=== PATIENT | male | born 1945 | race Caucasian/White ===

== ENCOUNTER 2016-05-28 19:25 | Inpatient (IN) | payer MEDICARE ==
[~2016-05-28] VITALS: Ht 180.3 cm; Wt 98.8 kg
[~2016-05-28 19:25] MED LIST: CARB25TA4 PO; DIOV160T60 PO; DOXY100T PO; ERYT.5%O LEFT EYE; GABA100C4 PO
[2016-05-28] MEDS ORDERED: SODIUM CHLOR 0.9% 1000 ML INJ 1,000 ML IV SCH (19:32)
[2016-05-28 19:33] VITALS: BP 136/77; PULSE 95; RESP 20; RESP 38; O2SAT 94
[2016-05-28] MEDS ORDERED: SODIUM CHLORIDE 0.9% FLUSH 5 ML FLUSH IVF PRN (19:45)
[2016-05-28] MEDS ORDERED: GABA100C4 PO (19:51)
[2016-05-28] MEDS ORDERED: SINE25TA PO (19:51)
[2016-05-28] MEDS ORDERED: LEXA5TAB PO (19:52)
[2016-05-28] MEDS ORDERED: TAMS5CAP PO (19:52)
[2016-05-28] MEDS ORDERED: SIMV20TA PO (19:52)
--- NOTE | 2016-05-28 19:57 | PD ---
HPI Chief Complaint: Altered Mental Status Time Seen by Provider: 19:32 Travel History International Travel<30 days: No Contact w/Intl Traveler<30days: No Traveled to known affect area: No History of Present Illness HPI 70-year-old male presents to the ER brought in by EMS apparently has been down for 4-5 days according to EMS, PD had done a wellness check on him several days ago, but did not go in, and patient is fairly disoriented, does not know what happened, and has apparently been laying on the floor for days. He has ecchymosis notable on the left chest wall and sacral decubitus. He is not able to give me much further history. Modifying Factors: None Associated Signs & Symptoms: Fall, laying on the floor for days, altered mental status Risk Factors: None PFSH Past Medical History Arthritis: Yes Asthma: No Autoimmune Disease: No Blood Disorders: No Anxiety: Yes Depression: No Heart Rhythm Problems: No Cancer: No Cardiovascular Problems: No High Cholesterol: Yes Chemotherapy: No Chest Pain: No Congestive Heart Failure: No COPD: No Cerebrovascular Accident: No Diabetes: No Diminished Hearing: No Endocrine: No Gastrointestinal Disorders: Yes GERD: Yes Glaucoma: No Genitourinary: No Headaches: Yes Hepatitis: No Hiatal Hernia: No Hypertension: Yes Immune Disorder: No Musculoskeletal: Yes Parkinson's Disease: Yes Psychiatric: Yes Reproductive: No Respiratory: Yes (globis disorder) Myocardial Infarction: No Radiation Therapy: No Sleep Apnea: No Thyroid Disease: No Past Surgical History Abdominal Surgery: No AICD: No Appendectomy: Yes Arteriovenous Shunt: No Cardiac Surgery: No Cholecystectomy: No Ear Surgery: No Endocrine Surgery: No Eye Surgery: Yes (LASIK) Genitourinary Surgery: No Gynecologic Surgery: No Insulin Pump: No Joint Replacement: No Oral Surgery: No Pacemaker: No Thoracic Surgery: No Other Surgery: Yes Social History Alcohol Use: Yes (EVERY TWO WEEKS) Tobacco Use: No Substance Use: No Allergies-Medications (Allergen,Severity, Reaction): Coded Allergies: Penicillin (Verified Allergy, Severe, Hives, 05/28/16) Reported Meds & Prescriptions Reported Meds & Active Scripts Active Reported Lexapro (Escitalopram Oxalate) 5 Mg Tab 5 Mg PO DAILY Simvastatin 20 Mg Tab 20 Mg PO HS Flomax (Tamsulosin HCl) 0.4 Mg Cap 0.4 Mg PO DAILY Gabapentin 100 Mg Cap 200 Mg PO TID Sinemet (Carbidopa-Levodopa) 25-100 Mg Tab 1.5 Tab PO QID Review of Systems ROS Limitations: Altered Mental Status Physical Exam Narrative GENERAL: Well-nourished, well-developed elderly white male patient who is lethargic, disoriented but awake able to follow some commands. SKIN: Warm and dry. Notable ecchymosis to the left chest wall, 1 cm area of ulceration to the sacrum and surrounding ecchymosis. HEAD: Normocephalic. EYES: No scleral icterus. No injection or drainage. Pupils are equal, round, small, equal, poorly reactive to light bilaterally. NECK: Supple, trachea midline. CARDIOVASCULAR: Regular rate and rhythm without murmurs, gallops, or rubs. RESPIRATORY: Breath sounds equal bilaterally. No accessory muscle use. GASTROINTESTINAL: Abdomen soft, non-tender, nondistended. Pelvis: Stable, nontender to palpation. MUSCULOSKELETAL: No cyanosis, or edema. BACK: Nontender without obvious deformity. No CVA tenderness. EXTREMITIES: No clubbing, cyanosis, or edema. No joint tenderness, effusion, or edema noted. Data Data Last Documented VS Vital Signs Date Time Temp Pulse Resp B/P Pulse Ox O2 Delivery O2 Flow Rate FiO2 05/28/16 20:16 97.2 05/28/16 19:33 100 05/28/16 19:33 95 20 136/77 Room Air Orders Electrocardiogram (05/28/16 19:32) Ammonia (05/28/16 19:32) Complete Blood Count With Diff (05/28/16 19:32) Comprehensive Metabolic Panel (05/28/16 19:32) Creatine Kinase (Cpk) (05/28/16 19:32) Prothrombin Time / Inr (Pt) (05/28/16 19:32) Act Partial Throm Time (Ptt) (05/28/16 19:32) Troponin I (05/28/16 19:32) Thyroid Stimulating Hormone (05/28/16 19:32) Lactic Acid Sepsis Protocol (05/28/16 19:32) Urinalysis - C+S If Indicated (05/28/16 19:32) Blood Culture (05/28/16 19:32) Chest, Single Ap (05/28/16 19:32) Ct Brain W/O Iv Contrast(Rout) (05/28/16 19:32) Blood Glucose (3/6/17 19:32) Ecg Monitoring (05/28/16 19:32) Iv Access Insert/Monitor (05/28/16 19:32) Oximetry (05/28/16 19:32) Urinary Catheter Insert/Apply (05/28/16 19:32) Sodium Chloride 0.9% Flush (Ns Flush) (05/28/16 19:45) Sodium Chlor 0.9% 1000 Ml Inj (Ns 1000 M (05/28/16 19:32) Ct Abd/Pel W/O Iv Contrast (05/28/16 19:57) Ct Thorax/ Chest Wo Iv Contras (05/28/16 20:06) Urine Culture (05/28/16 20:04) CKMB (05/28/16 19:41) CKMB% (05/28/16 19:41) Admit Order (Ed Use Only) (05/28/16 21:31) Labs Laboratory Tests Test 05/28/16 05/28/16 19:41 20:04 White Blood Count 15.4 TH/MM3 Red Blood Count 4.63 MIL/MM3 Hemoglobin 16.1 GM/DL Hematocrit 48.5 % Mean Corpuscular Volume 104.8 FL Mean Corpuscular Hemoglobin 34.8 PG Mean Corpuscular Hemoglobin 33.2 % Concent Red Cell Distribution Width 14.2 % Platelet Count 214 TH/MM3 Mean Platelet Volume 10.6 FL Neutrophils (%) (Auto) 78.7 % Lymphocytes (%) (Auto) 10.6 % Monocytes (%) (Auto) 10.4 % Eosinophils (%) (Auto) 0.1 % Basophils (%) (Auto) 0.2 % Neutrophils # (Auto) 12.1 TH/MM3 Lymphocytes # (Auto) 1.6 TH/MM3 Monocytes # (Auto) 1.6 TH/MM3 Eosinophils # (Auto) 0.0 TH/MM3 Basophils # (Auto) 0.0 TH/MM3 CBC Comment DIFF FINAL Differential Comment Prothrombin Time 12.3 SEC Prothromb Time International 1.1 RATIO Ratio Activated Partial 21.8 SEC Thromboplast Time Sodium Level 153 MEQ/L Potassium Level 5.2 MEQ/L Chloride Level 114 MEQ/L Carbon Dioxide Level 25.7 MEQ/L Anion Gap 13 MEQ/L Blood Urea Nitrogen 83 MG/DL Creatinine 2.02 MG/DL Estimat Glomerular Filtration 33 ML/MIN Rate Random Glucose 137 MG/DL Lactic Acid Level 3.9 mmol/L Calcium Level 9.8 MG/DL Total Bilirubin 1.3 MG/DL Aspartate Amino Transf 171 U/L (AST/SGOT) Alanine Aminotransferase 87 U/L (ALT/SGPT) Alkaline Phosphatase 95 U/L Ammonia 18 MCMOL/L Total Creatine Kinase 2289 U/L Creatine Kinase MB 15.7 NG/ML Creatine Kinase MB % 0.7 % Troponin I 0.03 NG/ML Total Protein 8.1 GM/DL Albumin 3.7 GM/DL Thyroid Stimulating Hormone 3.140 uIU/ML 3rd Gen Urine Color YELLOW Urine Turbidity HAZY Urine pH 5.5 Urine Specific [place] 1.026 Urine Protein TRACE mg/dL Urine Glucose (UA) NEG mg/dL Urine Ketones 10 mg/dL Urine Occult Blood SMALL Urine Nitrite NEG Urine Bilirubin NEG Urine Urobilinogen 2.0 MG/DL Urine Leukocyte Esterase NEG Urine RBC 5 /hpf Urine WBC 6 /hpf Urine Bacteria RARE /hpf Urine Hyaline Casts 13 /lpf Microscopic Urinalysis Comment CATH-CULTURE IND MDM Medical Decision Making Medical Screen Exam Complete: Yes Emergency Medical Condition: Yes Medical Record Reviewed: Yes Interpretation(s) EKG shows sinus rhythm at a rate of 98 bpm with no signs of acute ST-T changes. Laboratory Tests Test 05/28/16 05/28/16 19:41 20:04 White Blood Count 15.4 TH/MM3 (4.0-11.0) Mean Corpuscular Volume 104.8 FL (80.0-100.0) Mean Corpuscular Hemoglobin 34.8 PG (27.0-34.0) Neutrophils (%) (Auto) 78.7 % (16.0-70.0) Monocytes (%) (Auto) 10.4 % (0.0-8.0) Neutrophils # (Auto) 12.1 TH/MM3 (1.8-7.7) Monocytes # (Auto) 1.6 TH/MM3 (0-0.9) Prothrombin Time 12.3 SEC (9.8-11.6) Activated Partial 21.8 SEC Thromboplast Time (24.3-30.1) Sodium Level 153 MEQ/L (136-145) Potassium Level 5.2 MEQ/L (3.5-5.1) Chloride Level 114 MEQ/L (98-107) Blood Urea Nitrogen 83 MG/DL (7-18) Creatinine 2.02 MG/DL (0.60-1.30) Estimat Glomerular Filtration 33 ML/MIN (>89) Rate Random Glucose 137 MG/DL (74-106) Lactic Acid Level 3.9 mmol/L (0.4-2.0) Total Bilirubin 1.3 MG/DL (0.2-1.0) Aspartate Amino Transf 171 U/L (15-37) (AST/SGOT) Alanine Aminotransferase 87 U/L (12-78) (ALT/SGPT) Total Creatine Kinase 2289 U/L (39-308) Creatine Kinase MB 15.7 NG/ML (0.5-3.6) Urine Turbidity HAZY (CLEAR) Urine Ketones 10 mg/dL (NEG) Urine Occult Blood SMALL (NEG) Urine RBC 5 /hpf (0-3) Urine WBC 6 /hpf (0-5) Urine Bacteria RARE /hpf (NONE) Last [address] 05/28/162005 Signed Impressions: Service Date/Time: Saturday, May 28, 2016 20:36 - CONCLUSION: Trace bibasilar atelectasis and a tiny pleural effusion on the right. Coronary artery calcification. Earle Diane MD Abdomen/Pelvis CT 05/28/161956 Signed Impressions: Service Date/Time: Saturday, May 28, 2016 20:34 - CONCLUSION: No acute process demonstrated. Sludge or small stones possible in the gallbladder. No inflammatory changes or evidence of obstruction. Earle Diane MD Head CT 05/28/161931 Signed Impressions: Service Date/Time: Saturday, May 28, 2016 20:32 - CONCLUSION: No acute intracranial abnormality demonstrated. Earle Diane MD Chest X-Ray 05/28/[id number] Signed Impressions: Service Date/Time: Saturday, May 28, 2016 19:45 - CONCLUSION: Prominent mediastinum but most likely related to technique. Standard upright 2 view chest x-ray recommended when clinically feasible. Otherwise within normal limits. Earle Diane MD Differential Diagnosis Fall, altered mental statussevere dehydration versus the left leg abnormalities versus acute intracranial injuries versus sepsis Narrative Course X-rays and CAT scans did not show any signs of acute injuries. His lab work shows that he is severely dehydrated and he has rhabdomyolysis. IV fluid boluses were given in the ER. Vital signs are stable in the ER. Case was discussed with supervisor customer services Dr. Sherman for admission for further treatment. Aggregate critical care time was 30 minutes. Time to perform other separately billable procedures was not included in the critical care time. My time did not include minutes spent treating any other patients simultaneously or on activities that did not directly contribute to the patient's treatment. The services I provided to this patient were to treat and/or prevent clinically significant deterioration that could result in: Worsening renal failure, electrolyte abnormalities, cardiopulmonary arrest, I provided critical care services requiring my management, as noted below: Chart data review, documentation time, medication orders and management, vital sign assessments/reviewing monitor data, ordering and reviewing lab tests, ordering and interpreting/reviewing x-rays and diagnostic studies, care of the patient and discussion of the patient with the admitting physicians. Diagnosis Primary Impression: Dehydration, severe Additional Impressions: Metabolic encephalopathy Rhabdomyolysis Admitting Information Admitting Physician Requests: Admit Trish Christine MD May 28, 2016 19:57
--- NOTE | 2016-05-28 19:59 | RADRPT ---
EXAM DATE/TIME: 05/28/2016 19:45 [facility] COMPARISON: CHEST PA & LAT, December 13, 2011, 11:12. INDICATIONS : Syncopal episode. MEDICAL HISTORY : Hypertension. Hypercholesterolemia. Parkinson Disease. SURGICAL HISTORY : Appendectomy. ENCOUNTER: Initial ACUITY: 1 day PAIN SCORE: Non-responsive. LOCATION: Bilateral chest FINDINGS: Study was obtained portably with the patient supine. Mediastinum is widened, likely related to techni que. No evidence of cardiomegaly. The lungs are clear. No pleural effusion or perceptible pneumothora x. CONCLUSION: Prominent mediastinum but most likely related to technique. Standard upright 2 view chest x-ray recom mended when clinically feasible. Otherwise within normal limits. Earle Dinae MD on May 28, 2016 at 19:57 Board Certified Radiologist. This report was verified electronically.
[2016-05-28 20:01] LABS: AUTOMATED NEUTROPHIL # 12.1 TH/MM3 (1.8-7.7); BASOPHIL % 0.2 % (0.0-2.0); EOSINOPHIL % 0.1 % (0.0-4.0); HEMATOCRIT 48.5 % (39.0-51.0); HEMO FLAGS DIFF FINAL; LYMPH % 10.6 % (9.0-44.0); LYMPHOCYTE # 1.6 TH/MM3 (1.0-4.8); MEAN CELL VOLUME 104.8 FL (80.0-100.0); MEAN CORPUSCULAR HEMOGLOBIN 34.8 PG (27.0-34.0); MEAN CORPUSCULAR HGB CONC 33.2 % (32.0-36.0); MONO % 10.4 % (0.0-8.0); NEUT % 78.7 % (16.0-70.0); PLATELET COUNT 214 TH/MM3 (150-450); RED BLOOD COUNT 4.63 MIL/MM3 (4.50-5.90); RED CELL DISTRIBUTION WIDTH 14.2 % (11.6-17.2); WHITE BLOOD COUNT 15.4 TH/MM3 (4.0-11.0)
[2016-05-28 20:11] LABS: APTT (PATIENT) 21.8 SEC (24.3-30.1); INTERNATIONAL NORMALIZED RATIO 1.1 RATIO; PROTHROMBIN TIME - PATIENT 12.3 SEC (9.8-11.6)
[2016-05-28 20:16] VITALS: TEMP 97.2
[2016-05-28 20:30] LABS: BACTERIA, URINE RARE /hpf; BLOOD, URINE SMALL (NEG); COMMENT (UR) CATH-CULTURE IND; CULTURE IF INDICATED CATH CULTURE IND; GLUCOSE,URINE NEG (NEG); HYALINE CAST, URINE 13 /lpf (RARE); KETONE, URINE 10 mg/dL (NEG); NITRITE,URINE NEG (NEG); PH, URINE 5.5 (5.0-8.5); URINE COLOR YELLOW (YELLW/STRAW)
[2016-05-28 20:45] LABS: ALKALINE PHOSPHATASE 95 U/L (45-117); ALT (GPT) 87 U/L (12-78); ANION GAP 13 MEQ/L (5-15); AST (GOT) 171 U/L (15-37); BICARBONATE 25.7 MEQ/L (21.0-32.0); BLOOD UREA NITROGEN 83 MG/DL (7-18); CHLORIDE 114 MEQ/L (98-107); CREATINE KINASE 2289 U/L (39-308); GLOMERULAR FILTRATION RATE 33 ML/MIN (>89); SODIUM (NA) 153 MEQ/L (136-145); TOTAL BILIRUBIN ADULT 1.3 MG/DL (0.2-1.0)
[2016-05-28 20:50] LABS: POTASSIUM 5.2 MEQ/L (3.5-5.1)
--- NOTE | 2016-05-28 20:57 | RADRPT ---
EXAM DATE/TIME: 05/28/2016 20:32 [facility] COMPARISON: No previous studies available for comparison. INDICATIONS : Altered mental status. RADIATION DOSE: 56.35 CTDIvol (mGy) MEDICAL HISTORY : Parkinson's. Hypertension. SURGICAL HISTORY : None. ENCOUNTER: Initial ACUITY: 1 day PAIN SCALE: Non-responsive LOCATION: cranial TECHNIQUE: Multiple contiguous axial images were obtained of the head. Using automated exposure control and adj ustment of the mA and/or kV according to patient size, radiation dose was kept as low as reasonably a chievable to obtain optimal diagnostic quality images. FINDINGS: CEREBRUM: The ventricles are normal for age. No evidence of midline shift, mass lesion, hemorrhage or acute in farction. No extra-axial fluid collections are seen. POSTERIOR FOSSA: The cerebellum and brainstem are intact. The 4th ventricle is midline. The cerebellopontine angle i s unremarkable. EXTRACRANIAL: The visualized portion of the orbits is intact. SKULL: The calvaria is intact. No evidence of skull fracture. CONCLUSION: No acute intracranial abnormality demonstrated. Earle Diane MD on May 28, 2016 at 20:55 Board Certified Radiologist. This report was verified electronically.
--- NOTE | 2016-05-28 21:00 | RADRPT ---
EXAM DATE/TIME: 05/28/2016 20:34 [facility] COMPARISON: No previous studies available for comparison. INDICATIONS : Fall; sacral decub. ORAL CONTRAST: No oral contrast ingested. RADIATION DOSE: 6.24 CTDIvol (mGy) ; Combined studies - Thorax/Abdomen/Pelvis MEDICAL HISTORY : Parkinson's. SURGICAL HISTORY : Appendectomy. ENCOUNTER: Initial ACUITY: 1 day PAIN SCALE: Non-responsive LOCATION: Bilateral abdomen. TECHNIQUE: Volumetric scanning of the abdomen and pelvis was performed. Using automated exposure control and ad justment of the mA and/or kV according to patient size, radiation dose was kept as low as reasonably achievable to obtain optimal diagnostic quality images. FINDINGS: LIVER: Homogeneous density without lesion. There is no dilation of the biliary tree. There is increased att enuation of the gallbladder contents, could be sludge or gravel-like stones. No ductal stone or ducta l dilatation. No perceptible acute inflammatory changes.. SPLEEN: Normal size without lesion. PANCREAS: Within normal limits. KIDNEYS: Normal in size and shape. There is no mass, stone, or hydronephrosis. ADRENAL GLANDS: Within normal limits. VASCULAR: There is no aortic aneurysm. BOWEL/MESENTERY: The stomach, small bowel, and colon demonstrate no acute abnormality. There is no free intraperitone al air or fluid. ABDOMINAL WALL: Within normal limits. RETROPERITONEUM: There is no lymphadenopathy. BLADDER: No wall thickening or mass. REPRODUCTIVE: Within normal limits. INGUINAL: There is no lymphadenopathy or hernia. MUSCULOSKELETAL: No acute bony abnormality demonstrated. CONCLUSION: No acute process demonstrated. Sludge or small stones possible in the gallbladder. No inflammatory ch anges or evidence of obstruction. Earle Diane MD on May 28, 2016 at 20:56 Board Certified Radiologist. This report was verified electronically.
--- NOTE | 2016-05-28 21:01 | RADRPT ---
EXAM DATE/TIME: 05/28/2016 20:36 [facility] COMPARISON: No previous studies available for comparison. INDICATIONS : Evaluate for pneumonia. RADIATION DOSE: 6.24 CTDIvol (mGy) ; Combined studies - Thorax/Abdomen/Pelvis MEDICAL HISTORY : Parkinson's. SURGICAL HISTORY : None. ENCOUNTER: Initial ACUITY: 1 day PAIN SCALE: Non-responsive LOCATION: Bilateral chest TECHNIQUE: Volumetric scanning of the chest was performed. Using automated exposure control and adjustment of t he mA and/or kV according to patient size, radiation dose was kept as low as reasonably achievable to obtain optimal diagnostic quality images. FINDINGS: Mild atelectasis seen at both bases. There is a tiny pleural effusion on the right. No lymphadenopathy demonstrated. Heart size within normal limits. There is coronary artery calcificat ion. CONCLUSION: Trace bibasilar atelectasis and a tiny pleural effusion on the right. Coronary artery calcification. Earle Diane MD on May 28, 2016 at 20:59 Board Certified Radiologist. This report was verified electronically.
[2016-05-28 21:03] LABS: CKMB 15.7 NG/ML (0.5-3.6)
--- NOTE | 2016-05-28 21:42 | HHI.HP ---
HPI Service Critical Care Medicine Primary Care Physician Unknown Admission Diagnosis Found down at home after several days. Diagnosis: Chief Complaint: Obtunded. By history he was probably down and alone for 3 - 5 days. Travel History International Travel<30 Days: No Contact w/Intl Traveler <30 Da: No Traveled to Known Affected Are: No History of Present Illness Found down after well-being check. Probably down for 3 - 5 days. Arrives severely dehydrated with rhabdomyolysis and ESTEFANIA. Scans of trunk reveals minor atelectasis right lung, otherwise viscous organs normal aside from possible gallbladder sludge. CT Head normal. Disoriented and confused. Temp 97.2. Review of Systems ROS Unobtainable, disoriented. No family Past Family Social History Allergies: Coded Allergies: Penicillin (Verified Allergy, Severe, Hives, 05/28/16) Past Medical History Past Medical History Arthritis: Yes Asthma: No Autoimmune Disease: No Blood Disorders: No Anxiety: Yes Depression: No Heart Rhythm Problems: No Cancer: No Cardiovascular Problems: No High Cholesterol: Yes Chemotherapy: No Chest Pain: No Congestive Heart Failure: No COPD: No Cerebrovascular Accident: No Diabetes: No Diminished Hearing: No Endocrine: No Gastrointestinal Disorders: Yes GERD: Yes Glaucoma: No Genitourinary: No Headaches: Yes Hepatitis: No Hiatal Hernia: No Hypertension: Yes Immune Disorder: No Musculoskeletal: Yes Parkinson's Disease: Yes Psychiatric: Yes Reproductive: No Respiratory: Yes (globis disorder) Myocardial Infarction: No Radiation Therapy: No Sleep Apnea: No Thyroid Disease: No Past Surgical History Abdominal Surgery: No AICD: No Appendectomy: Yes Arteriovenous Shunt: No Cardiac Surgery: No Cholecystectomy: No Ear Surgery: No Endocrine Surgery: No Eye Surgery: Yes (LASIK) Genitourinary Surgery: No Gynecologic Surgery: No Insulin Pump: No Joint Replacement: No Oral Surgery: No Pacemaker: No Thoracic Surgery: No Other Surgery: Yes Social History Alcohol Use: Yes (EVERY TWO WEEKS) Tobacco Use: No Substance Use: No Allergies-Medications Allergies-Medications (Allergen,Severity, Reaction): Coded Allergies: Penicillin (Verified Allergy, Severe, Hives, 05/28/16) Reported Meds & Prescriptions Reported Meds & Active Scripts Active Reported Gabapentin 100 Mg Cap 200 Mg PO TID Sinemet (Carbidopa-Levodopa) 25-100 Mg Tab 1.5 Tab PO QID Physical Exam Vital Signs Vital Signs Date Time Temp Pulse Resp B/P Pulse Ox O2 Delivery O2 Flow Rate FiO2 05/28/16 20:16 97.2 05/28/16 19:33 100 05/28/16 19:33 95 20 136/77 94 Room Air Physical Exam P 95, BP 136/77, R 20, T 97.2, Sats 95% Head: Atraumatic. Neck: Supple, airway widely patent. Lungs: Clear, no wheezes or crackles. Tachypnea Chest: Left chest wall with old bruises. Heart: Tachycardia, NL S1S2, neck veins flat. Abdomen: Soft, no guarding, BS active. Extremities: Tepid. Withdraws four to stimulation. Neuro: Conversant but confused. No focal deficit. Pupils 2 mm, react. Laboratory Laboratory Tests Test 05/28/16 05/28/16 19:41 20:04 White Blood Count 15.4 Red Blood Count 4.63 Hemoglobin 16.1 Hematocrit 48.5 Mean Corpuscular Volume 104.8 Mean Corpuscular Hemoglobin 34.8 Mean Corpuscular Hemoglobin 33.2 Concent Red Cell Distribution Width 14.2 Platelet Count 214 Mean Platelet Volume 10.6 Neutrophils (%) (Auto) 78.7 Lymphocytes (%) (Auto) 10.6 Monocytes (%) (Auto) 10.4 Eosinophils (%) (Auto) 0.1 Basophils (%) (Auto) 0.2 Neutrophils # (Auto) 12.1 Lymphocytes # (Auto) 1.6 Monocytes # (Auto) 1.6 Eosinophils # (Auto) 0.0 Basophils # (Auto) 0.0 CBC Comment DIFF FINAL Differential Comment Prothrombin Time 12.3 Prothromb Time International 1.1 Ratio Activated Partial 21.8 Thromboplast Time Sodium Level 153 Potassium Level 5.2 Chloride Level 114 Carbon Dioxide Level 25.7 Anion Gap 13 Blood Urea Nitrogen 83 Creatinine 2.02 Estimat Glomerular Filtration 33 Rate Random Glucose 137 Lactic Acid Level 3.9 Calcium Level 9.8 Total Bilirubin 1.3 Aspartate Amino Transf 171 (AST/SGOT) Alanine Aminotransferase 87 (ALT/SGPT) Alkaline Phosphatase 95 Ammonia 18 Total Creatine Kinase 2289 Creatine Kinase MB 15.7 Creatine Kinase MB % 0.7 Troponin I 0.03 Total Protein 8.1 Albumin 3.7 Thyroid Stimulating Hormone 3.140 3rd Gen Urine Color YELLOW Urine Turbidity HAZY Urine pH 5.5 Urine Specific [place] 1.026 Urine Protein TRACE Urine Glucose (UA) NEG Urine Ketones 10 Urine Occult Blood SMALL Urine Nitrite NEG Urine Bilirubin NEG Urine Urobilinogen 2.0 Urine Leukocyte Esterase NEG Urine RBC 5 Urine WBC 6 Urine Bacteria RARE Urine Hyaline Casts 13 Microscopic Urinalysis Comment CATH-CULTURE IND Date/Time Procedure Status Source Growth 05/28/16 20:04 Urine Culture Received Urine Catheterized Urine Pending 05/28/16 19:45 Aerobic Blood Culture Received Blood Peripheral Pending 05/28/16 19:45 Anaerobic Blood Culture Received Blood Peripheral Pending Result Diagram: 05/28/16194005/28/161940 Assessment and Plan Problem List: (1) Metabolic encephalopathy ICD Code: G93.41 Status: Acute (2) Dehydration, severe ICD Code: E86.0 Status: Acute (3) Rhabdomyolysis ICD Code: M62.82 Status: Acute (4) ESTEFANIA (acute kidney injury) ICD Code: N17.9 Status: Acute Assessment and Plan Plan: 1. Aggressive hydration. 2. Bicarb gtt. 3. Serial lytes. 4. Watch K, Maf. Phos closely. 5. Pepcid. 6. Heparin DVT px sq. 7. Raya for hourly urine. 8. HOB up 30. 9. Produce urine > 30/hr. 10. Hold antibiotics. 11. Alkalinize urine until CK clears Overall impression: Critically ill with severe dehydration, kidney injury and potential for renal failure. No evidence of infection aside from concentrated leukocytes. No drug screen sent. Critical Care 40 mins Diogenes Santiago MD May 28, 2016 21:42
[2016-05-28] MEDS ORDERED: SODIUM BICARBONATE 8.4% INJ 100 MEQ in DEXTROSE 5% IN WATE 1000ML INJ 1,000 ML IV SCH ×2 (21:45)
[2016-05-28] MEDS ORDERED: SODIUM CHLORIDE 0.9% FLUSH 5 ML FLUSH IV FLUSH PRN (21:45)
[2016-05-28] MEDS ORDERED: ONDANSETRON HCL 4 MG/2 ML VIAL IV PRN (21:45)
[2016-05-28] MEDS ORDERED: RESP: ALBUTEROL 2.5 MG/IPRATROPIUM 0.5 MG NEB (PRN) INH (21:45)
[2016-05-28] MEDS ORDERED: MISCELLANEOUS NURSING INFORMATION XX SCH ×2 (21:45→22:00)
[2016-05-28] MEDS ORDERED: CHLORHEXIDINE GLUCONATE 2 % 1 PACK (2 CLOTHS) TOP PRN ×2 (21:45→22:00)
[2016-05-28] MEDS ORDERED: SODIUM CHLOR 0.9% 1000 ML INJ 1,000 ML IV ONE ×2 (21:45)
[2016-05-28 21:51] VITALS: O2SAT 94
[2016-05-28 21:51] LABS: LACTIC ACID GHOST NOT REPORTABLE
[2016-05-28 22:00] VITALS: BP 137/92; PULSE 92; RESP 32; TEMP 98.1; O2SAT 95
[2016-05-28] MEDS: HEPARIN SODIUM - SQ 10,000 UNITS/ML VIAL SQ SCH (22:11)
[2016-05-28] MEDS: SODIUM CHLOR 0.9% 1000 ML INJ 1,000 ML IV SCH (22:11)
[2016-05-29] VITALS (14 sets, daily range): BP systolic 125–148; BP diastolic 65–71; PULSE 70–96; RESP 17–27; TEMP 98–98.8; O2SAT 94–99
[2016-05-29 00:23] LABS: CKMB 13.1 NG/ML (0.5-3.6)
[2016-05-29] MEDS: CHLORHEXIDINE GLUCONATE 2 % 1 PACK (2 CLOTHS) TOP SCH (04:00)
[2016-05-29] MEDS ORDERED: CHLORHEXIDINE GLUCONATE 2 % 1 PACK (2 CLOTHS) TOP SCH (04:00)
[2016-05-29] MEDS: SODIUM CHLOR 0.9% 1000 ML INJ 1,000 ML IV SCH (04:22)
[2016-05-29 05:15] LABS: AUTOMATED NEUTROPHIL # 11.1 TH/MM3 (1.8-7.7); BASOPHIL % 0.2 % (0.0-2.0); EOSINOPHIL % 0.1 % (0.0-4.0); HEMATOCRIT 42.8 % (39.0-51.0); HEMO FLAGS DIFF FINAL; LYMPH % 8.3 % (9.0-44.0); LYMPHOCYTE # 1.1 TH/MM3 (1.0-4.8); MEAN CELL VOLUME 103.9 FL (80.0-100.0); MEAN CORPUSCULAR HEMOGLOBIN 34.5 PG (27.0-34.0); MEAN CORPUSCULAR HGB CONC 33.2 % (32.0-36.0); MONO % 11.1 % (0.0-8.0); NEUT % 80.3 % (16.0-70.0); PLATELET COUNT 176 TH/MM3 (150-450); RED BLOOD COUNT 4.12 MIL/MM3 (4.50-5.90); RED CELL DISTRIBUTION WIDTH 13.7 % (11.6-17.2); WHITE BLOOD COUNT 13.8 TH/MM3 (4.0-11.0)
[2016-05-29 06:02] LABS: ALKALINE PHOSPHATASE 74 U/L (45-117); ALT (GPT) 70 U/L (12-78); ANION GAP 10 MEQ/L (5-15); AST (GOT) 121 U/L (15-37); BICARBONATE 26.2 MEQ/L (21.0-32.0); BLOOD UREA NITROGEN 72 MG/DL (7-18); CHLORIDE 120 MEQ/L (98-107); CREATINE KINASE 1734 U/L (39-308); GLOMERULAR FILTRATION RATE 46 ML/MIN (>89); MAGNESIUM 2.5 MG/DL (1.5-2.5)
[2016-05-29 06:08] LABS: SODIUM (NA) 156 MEQ/L (136-145)
[2016-05-29 06:25] LABS: CKMB 11.1 NG/ML (0.5-3.6)
[2016-05-29 06:58] LABS: AMPHETAMINE, URINE NEG (NEG); BARBITURATES, URINE NEG (NEG); COCAINE, URINE NEG (NEG)
[2016-05-29] MEDS: FAMOTIDINE 20 MG/2 ML VIAL IV PUSH SCH (09:00)
[2016-05-29] MEDS: SODIUM CHLORIDE 0.9% FLUSH 5 ML FLUSH IV FLUSH SCH ×2 (09:00→20:42)
[2016-05-29] MEDS: HEPARIN SODIUM - SQ 10,000 UNITS/ML VIAL SQ SCH (09:45)
--- NOTE | 2016-05-29 10:09 | HHI.CCPN ---
Subjective Remarks/Hospital Course Found down after well-being check. Probably down for 3 - 5 days. Arrives severely dehydrated with rhabdomyolysis and ESTEFANIA. Scans of trunk reveals minor atelectasis right lung, otherwise viscous organs normal aside from possible gallbladder sludge. CT Head normal. Disoriented and confused. Temp 97.2. 05/29 Patient is more awake Renal function improving with Cr: 1.51 from 2.02 on bicarb drip. Afebrile. Objective Vital Signs Date Time Temp Pulse Resp B/P Pulse Ox O2 Delivery O2 Flow Rate FiO2 05/29/16 08:00 82 05/29/16 04:00 98.7 25 148/71 96 05/28/16 22:00 Nasal Cannula 2 Result Diagram: 05/29/16 0445 05/29/16 0445 Other Results Laboratory Tests Test 05/28/16 05/28/16 05/28/16 05/29/16 19:41 20:04 23:25 00:40 White Blood Count 15.4 TH/MM3 Red Blood Count 4.63 MIL/MM3 Hemoglobin 16.1 GM/DL Hematocrit 48.5 % Mean Corpuscular Volume 104.8 FL Mean Corpuscular Hemoglobin 34.8 PG Mean Corpuscular Hemoglobin 33.2 % Concent Red Cell Distribution Width 14.2 % Platelet Count 214 TH/MM3 Mean Platelet Volume 10.6 FL Neutrophils (%) (Auto) 78.7 % Lymphocytes (%) (Auto) 10.6 % Monocytes (%) (Auto) 10.4 % Eosinophils (%) (Auto) 0.1 % Basophils (%) (Auto) 0.2 % Neutrophils # (Auto) 12.1 TH/MM3 Lymphocytes # (Auto) 1.6 TH/MM3 Monocytes # (Auto) 1.6 TH/MM3 Eosinophils # (Auto) 0.0 TH/MM3 Basophils # (Auto) 0.0 TH/MM3 CBC Comment DIFF FINAL Differential Comment Prothrombin Time 12.3 SEC Prothromb Time International 1.1 RATIO Ratio Activated Partial 21.8 SEC Thromboplast Time Sodium Level 153 MEQ/L Potassium Level 5.2 MEQ/L Chloride Level 114 MEQ/L Carbon Dioxide Level 25.7 MEQ/L Anion Gap 13 MEQ/L Blood Urea Nitrogen 83 MG/DL Creatinine 2.02 MG/DL Estimat Glomerular Filtration 33 ML/MIN Rate Random Glucose 137 MG/DL Lactic Acid Level 3.9 mmol/L 1.3 mmol/L Calcium Level 9.8 MG/DL Total Bilirubin 1.3 MG/DL Aspartate Amino Transf 171 U/L (AST/SGOT) Alanine Aminotransferase 87 U/L (ALT/SGPT) Alkaline Phosphatase 95 U/L Ammonia 18 MCMOL/L Total Creatine Kinase 2289 U/L 1896 U/L Creatine Kinase MB 15.7 NG/ML 13.1 NG/ML Creatine Kinase MB % 0.7 % 0.7 % Troponin I 0.03 NG/ML Total Protein 8.1 GM/DL Albumin 3.7 GM/DL Thyroid Stimulating Hormone 3.140 uIU/ML 3rd Gen Urine Color YELLOW Urine Turbidity HAZY Urine pH 5.5 Urine Specific [place] 1.026 Urine Protein TRACE mg/dL Urine Glucose (UA) NEG mg/dL Urine Ketones 10 mg/dL Urine Occult Blood SMALL Urine Nitrite NEG Urine Bilirubin NEG Urine Urobilinogen 2.0 MG/DL Urine Leukocyte Esterase NEG Urine RBC 5 /hpf Urine WBC 6 /hpf Urine Bacteria RARE /hpf Urine Hyaline Casts 13 /lpf Microscopic Urinalysis Comment CATH-CULTURE IND Nasal Screen MRSA (PCR) NEGATIVE Test 05/29/16 05/29/16 04:45 06:30 White Blood Count 13.8 TH/MM3 Red Blood Count 4.12 MIL/MM3 Hemoglobin 14.2 GM/DL Hematocrit 42.8 % Mean Corpuscular Volume 103.9 FL Mean Corpuscular Hemoglobin 34.5 PG Mean Corpuscular Hemoglobin 33.2 % Concent Red Cell Distribution Width 13.7 % Platelet Count 176 TH/MM3 Mean Platelet Volume 10.5 FL Neutrophils (%) (Auto) 80.3 % Lymphocytes (%) (Auto) 8.3 % Monocytes (%) (Auto) 11.1 % Eosinophils (%) (Auto) 0.1 % Basophils (%) (Auto) 0.2 % Neutrophils # (Auto) 11.1 TH/MM3 Lymphocytes # (Auto) 1.1 TH/MM3 Monocytes # (Auto) 1.5 TH/MM3 Eosinophils # (Auto) 0.0 TH/MM3 Basophils # (Auto) 0.0 TH/MM3 CBC Comment DIFF FINAL Differential Comment Sodium Level 156 MEQ/L Potassium Level 4.0 MEQ/L Chloride Level 120 MEQ/L Carbon Dioxide Level 26.2 MEQ/L Anion Gap 10 MEQ/L Blood Urea Nitrogen 72 MG/DL Creatinine 1.51 MG/DL Estimat Glomerular Filtration 46 ML/MIN Rate Random Glucose 157 MG/DL Lactic Acid Level 1.4 mmol/L Calcium Level 8.6 MG/DL Phosphorus Level 3.2 MG/DL Magnesium Level 2.5 MG/DL Total Bilirubin 1.0 MG/DL Aspartate Amino Transf 121 U/L (AST/SGOT) Alanine Aminotransferase 70 U/L (ALT/SGPT) Alkaline Phosphatase 74 U/L Total Creatine Kinase 1734 U/L Creatine Kinase MB 11.1 NG/ML Creatine Kinase MB % 0.6 % Total Protein 6.3 GM/DL Albumin 3.1 GM/DL Urine Opiates Screen NEG Urine Barbiturates Screen NEG Urine Amphetamines Screen NEG Urine Benzodiazepines Screen NEG Urine Cocaine Screen NEG Urine Cannabinoids Screen NEG Imaging Last Impressions Chest CT 05/28/162005 Signed Impressions: Service Date/Time: Saturday, May 28, 2016 20:36 - CONCLUSION: Trace bibasilar atelectasis and a tiny pleural effusion on the right. Coronary artery calcification. Earle Diane MD Abdomen/Pelvis CT 05/28/161956 Signed Impressions: Service Date/Time: Saturday, May 28, 2016 20:34 - CONCLUSION: No acute process demonstrated. Sludge or small stones possible in the gallbladder. No inflammatory changes or evidence of obstruction. Earle Diane MD Head CT 05/28/161931 Signed Impressions: Service Date/Time: Saturday, May 28, 2016 20:32 - CONCLUSION: No acute intracranial abnormality demonstrated. Earle Diane MD Chest X-Ray 05/28/161931 Signed Impressions: Service Date/Time: Saturday, May 28, 2016 19:45 - CONCLUSION: Prominent mediastinum but most likely related to technique. Standard upright 2 view chest x-ray recommended when clinically feasible. Otherwise within normal limits. Earle Diane MD Objective Remarks GENERAL: Patient is 70 lying in bed in NAD SKIN: Warm and dry. HEAD: Normocephalic. EYES: No scleral icterus. No injection or drainage. NECK: Supple, trachea midline. No JVD or lymphadenopathy. CARDIOVASCULAR: Regular rate and rhythm without murmurs, gallops, or rubs. RESPIRATORY: Breath sounds equal bilaterally. No accessory muscle use. GASTROINTESTINAL: Abdomen soft, non-tender, nondistended. MUSCULOSKELETAL: No cyanosis, or edema. Neuro: Awake, no focal deficits A/P Problem List: (1) Metabolic encephalopathy ICD Code: G93.41 Status: Acute (2) Dehydration, severe ICD Code: E86.0 Status: Acute (3) Rhabdomyolysis ICD Code: M62.82 Status: Acute (4) ESTEFANIA (acute kidney injury) ICD Code: N17.9 Status: Acute Assessment and Plan 1)Resp Insuff 2)Metabolic encephalopathy..improving 3)ESTEFANIA 4)Rhabdo 5)Hypernatremia 6)Dehydration 7)Lactic acidosis- resolved 8)Leukocytosis..trending down 9)Elevated AST Plan: Neuro: Awake avoid sedatives. Pulm: Continue with oxygen keep sat >92% Bronchodilators PRN CT chest: Bibasilar atelectasis CV: Monitor HR and BP keep MAP>65mmHg. Lactic acid resolved : Monitor renal function, I/O's, avoid nephrotoxins Renal function improving with Cr: 1.51 from 2.0 d/c bicarb drip, change IVF D5W@100ml/hr. Monitor sodium level. GI: Speech eval, diet per speech. On Pepcid 20mg daily Monitor LFT, check US liver. CT abdomen/pelvis: No acute process demonstrated. Sludge or small stones possible in the gallbladder. No inflammatory changes or evidence of obstruction. Heme: Monitor CBC ID: Monitor for signs of infections ( Fever, WBC) follow up on blood and urine cxs Endo: SSI for glycemic control GI prophylaxis- on Pepcid 20mg daily DVT prophylaxis- SCD, heparin SQ Level 2 Plan: 1. Aggressive hydration. 2. Bicarb gtt. 3. Serial lytes. 4. Watch K, Maf. Phos closely. 5. Pepcid. 6. Heparin DVT px sq. 7. Raya for hourly urine. 8. HOB up 30. 9. Produce urine > 30/hr. 10. Hold antibiotics. 11. Alkalinize urine until CK clears Overall impression: Critically ill with severe dehydration, kidney injury and potential for renal failure. No evidence of infection aside from concentrated leukocytes. No drug screen sent. Critical Care 40 mins Jaden Graf MD May 29, 2016 10:09
[2016-05-29] MEDS ORDERED: GLUCAGON 1 MG/ML VIAL OTHER PRN (10:15)
[2016-05-29] MEDS ORDERED: DEXTROSE 50% IN WATER 50 ML VIAL(D50) IV PUSH PRN (10:15)
[2016-05-29] MEDS: DEXTROSE 5% IN WATE 1000ML INJ 1,000 ML IV SCH ×2 (11:00→20:42)
[2016-05-29] MEDS: INSULIN NovoLIN REGULAR SUPPLEMENTAL SCALE SQ SCH ×3 (11:00→23:00)
--- NOTE | 2016-05-29 11:27 | RADRPT ---
EXAM DATE/TIME: 05/29/2016 10:27 [facility] COMPARISON: No previous studies available for comparison. INDICATIONS : Increased lab values. MEDICAL HISTORY : Hypercholesterolemia. Hypertension. Gastroesophageal reflux disease. Parkinson's disease. arthritis. SURGICAL HISTORY : Appendectomy. ENCOUNTER: Initial ACUITY: 1 day PAIN SCORE: 0/10 LOCATION: Abdomen. MEASUREMENTS: LIVER: 13.5 cm length COMMON DUCT: 4 mm RIGHT KIDNEY: 9.8 x 5.9 x 5.9 cm SPLEEN: 8.4 cm length FINDINGS: Limited study due to patient motion. LIVER: Normal echotexture without focal lesion or ductal dilatation. COMMON DUCT: No intraluminal mass or stone visualized. GALLBLADDER: Contains no stones, demonstrates no wall thickening or pericholecystic fluid. There is echogenic palomo ris/sludge. PANCREAS: The visualized portions are within normal limits. RIGHT KIDNEY: No hydronephrosis, stone or mass. SPLEEN: No focal lesion. CONCLUSION: 1. Echogenic debris/sludge in the gallbladder. No cholelithiasis or wall thickening. Luis F Gallegos MD on May 29, 2016 at 11:24 Board Certified Radiologist. This report was verified electronically.
--- NOTE | 2016-05-29 11:42 | EKG ---
Date Performed: 05/28/2016 Time Performed: 19:52:26 PTAGE: 70 years EKG: Sinus rhythm WITH OCCASIONAL SUPRAVENTRICULAR PREMATURE COMPLEXES POSSIBLE RIGHT VENTRICULAR CONDUCTION DELAY NON SPECIFIC ANTEROLATERAL ST ABNORMALITY BORDERLINE ECG PREVIOUS TRACING : 01/27/2007 16.49 Compared to previous tracing, nonspecific ST abnormality is now present. DOCTOR: Bartolome Morocho Interpretating Date/Time 05/29/2016 11:40:05
[2016-05-29 13:01] LABS: CKMB 8.4 NG/ML (0.5-3.6)
[2016-05-30] VITALS (14 sets, daily range): BP systolic 121–145; BP diastolic 60–94; PULSE 66–80; RESP 23–32; TEMP 97.7–99.6; O2SAT 92–97
[2016-05-30] MEDS: HEPARIN SODIUM - SQ 10,000 UNITS/ML VIAL SQ SCH ×3 (00:07→21:21)
[2016-05-30] MEDS: CHLORHEXIDINE GLUCONATE 2 % 1 PACK (2 CLOTHS) TOP SCH (04:00)
[2016-05-30] MEDS: INSULIN NovoLIN REGULAR SUPPLEMENTAL SCALE SQ SCH ×4 (05:00→23:00)
[2016-05-30 05:36] LABS: AUTOMATED NEUTROPHIL # 9.2 TH/MM3 (1.8-7.7); BASOPHIL % 0.1 % (0.0-2.0); EOSINOPHIL # 0.1 TH/MM3 (0-0.4); EOSINOPHIL % 0.5 % (0.0-4.0); HEMATOCRIT 40.9 % (39.0-51.0); HEMO FLAGS DIFF FINAL; LYMPH % 12.7 % (9.0-44.0); LYMPHOCYTE # 1.5 TH/MM3 (1.0-4.8); MEAN CELL VOLUME 104.2 FL (80.0-100.0); MEAN CORPUSCULAR HEMOGLOBIN 34.7 PG (27.0-34.0); MEAN CORPUSCULAR HGB CONC 33.3 % (32.0-36.0); MONO % 9.6 % (0.0-8.0); NEUT % 77.1 % (16.0-70.0); PLATELET COUNT 151 TH/MM3 (150-450); RED BLOOD COUNT 3.92 MIL/MM3 (4.50-5.90); RED CELL DISTRIBUTION WIDTH 13.5 % (11.6-17.2); WHITE BLOOD COUNT 11.9 TH/MM3 (4.0-11.0)
[2016-05-30 06:05] LABS: ALKALINE PHOSPHATASE 80 U/L (45-117); ALT (GPT) 81 U/L (12-78); ANION GAP 10 MEQ/L (5-15); AST (GOT) 99 U/L (15-37); BICARBONATE 27.9 MEQ/L (21.0-32.0); BLOOD UREA NITROGEN 44 MG/DL (7-18); CHLORIDE 115 MEQ/L (98-107); CREATINE KINASE 931 U/L (39-308); GLOMERULAR FILTRATION RATE 52 ML/MIN (>89); MAGNESIUM 2.2 MG/DL (1.5-2.5); POTASSIUM 3.9 MEQ/L (3.5-5.1); SODIUM (NA) 153 MEQ/L (136-145); TOTAL BILIRUBIN ADULT 1.2 MG/DL (0.2-1.0)
[2016-05-30 06:26] LABS: CKMB 6.8 NG/ML (0.5-3.6)
[2016-05-30] MEDS: DEXTROSE 5% IN WATE 1000ML INJ 1,000 ML IV SCH ×3 (07:27→21:21)
--- NOTE | 2016-05-30 09:03 | HHI.CCPN ---
Subjective Remarks/Hospital Course Found down after well-being check. Probably down for 3 - 5 days. Arrives severely dehydrated with rhabdomyolysis and ESTEFANIA. Scans of trunk reveals minor atelectasis right lung, otherwise viscous organs normal aside from possible gallbladder sludge. CT Head normal. Disoriented and confused. Temp 97.2. 05/29 Patient is more awake Renal function improving with Cr: 1.51 from 2.02 on bicarb drip. Afebrile. 05/30: Mental status appears to be improving. White count improved from 13.8- 11.9. Sodium is 153 today's today was 156. Creatinine further improved 1.35. Patient is oriented to person, not oriented to place or time Objective Vital Signs Date Time Temp Pulse Resp B/P Pulse Ox O2 Delivery O2 Flow Rate FiO2 05/30/16 08:20 97 Nasal Cannula 3.00 05/30/16 06:00 66 05/30/16 04:00 98.2 23 145/67 Intake and Output 05/29/16 05/29/16 05/30/16 08:00 16:00 00:00 Intake Total 1215 ml 1584 ml 619 ml Output Total 350 ml 700 ml 150 ml Balance 865 ml 884 ml 469 ml Result Diagram: 05/30/16 0459 05/30/16 0459 Imaging Last Impressions Chest CT 05/28/162005 Signed Impressions: Service Date/Time: Saturday, May 28, 2016 20:36 - CONCLUSION: Trace bibasilar atelectasis and a tiny pleural effusion on the right. Coronary artery calcification. Earle Diane MD Abdomen/Pelvis CT 05/28/161956 Signed Impressions: Service Date/Time: Saturday, May 28, 2016 20:34 - CONCLUSION: No acute process demonstrated. Sludge or small stones possible in the gallbladder. No inflammatory changes or evidence of obstruction. Earle Diane MD Head CT 05/28/161931 Signed Impressions: Service Date/Time: Saturday, May 28, 2016 20:32 - CONCLUSION: No acute intracranial abnormality demonstrated. Earle Diane MD Chest X-Ray 05/28/161931 Signed Impressions: Service Date/Time: Saturday, May 28, 2016 19:45 - CONCLUSION: Prominent mediastinum but most likely related to technique. Standard upright 2 view chest x-ray recommended when clinically feasible. Otherwise within normal limits. Earle Diane MD Objective Remarks GENERAL: Patient is 70 lying in bed in NAD SKIN: Warm and dry. HEAD: Normocephalic. EYES: No scleral icterus. No injection or drainage. NECK: Supple, trachea midline. No JVD or lymphadenopathy. CARDIOVASCULAR: Regular rate and rhythm without murmurs, gallops, or rubs. RESPIRATORY: Breath sounds equal bilaterally. No accessory muscle use. GASTROINTESTINAL: Abdomen soft, non-tender, nondistended. MUSCULOSKELETAL: No cyanosis, or edema. Neuro: Awake, alert oriented to person. Not oriented to time or place. He follows commands on all 4 extremities A/P Problem List: (1) Metabolic encephalopathy ICD Code: G93.41 Status: Acute (2) Dehydration, severe ICD Code: E86.0 Status: Acute (3) Rhabdomyolysis ICD Code: M62.82 Status: Acute (4) ESTEFANIA (acute kidney injury) ICD Code: N17.9 Status: Acute Assessment and Plan Assessment: Metabolic encephalopathy..improving ESTEFANIA Rhabdomyolysis Hypernatremia Dehydration Lactic acidosis- resolved Leukocytosis..trending down Elevated AST Plan: Neuro: Awake avoid sedatives. Encephalopathy most likely metabolic seems to be improving. CT head negative Pulm: Continue with oxygen keep sat >90% Bronchodilators PRN CT chest: Bibasilar atelectasis CV: Monitor HR and BP keep MAP>65mmHg. Lactic acidosis resolved : Monitor renal function, I/O's, avoid nephrotoxins Renal function improving with Cr: 1.35 from 1.5 IVF D5W@100ml/hr increase to 125 ml per hour. Na level improving. GI: Speech eval, request repeat as RN reports coughing with food intake. On Pepcid 20mg daily Monitor LFT, check US liver. CT abdomen/pelvis: No acute process demonstrated. Sludge or small stones possible in the gallbladder. Heme: Monitor CBC ID: Monitor for signs of infections (Fever, WBC) follow up on blood and urine cxs Endo: SSI for glycemic control GI prophylaxis- on Pepcid 20mg daily DVT prophylaxis- SCD, heparin SQ Level 2 Plan: 1. Aggressive hydration. 2. Bicarb gtt. 3. Serial lytes. 4. Watch K, Maf. Phos closely. 5. Pepcid. 6. Heparin DVT px sq. 7. Raya for hourly urine. 8. HOB up 30. 9. Produce urine > 30/hr. 10. Hold antibiotics. 11. Alkalinize urine until CK clears Overall impression: Critically ill with severe dehydration, kidney injury and potential for renal failure. No evidence of infection aside from concentrated leukocytes. No drug screen sent. Critical Care 40 mins Laura Og MD May 30, 2016 09:03
[2016-05-30] MEDS: SODIUM CHLORIDE 0.9% FLUSH 5 ML FLUSH IV FLUSH SCH ×2 (10:48→21:00)
[2016-05-30] MEDS: FAMOTIDINE 20 MG/2 ML VIAL IV PUSH SCH (10:48)
[2016-05-31] VITALS (11 sets, daily range): BP systolic 122–144; BP diastolic 65–86; PULSE 72–85; RESP 18–33; TEMP 97–98.9; O2SAT 93–97
[2016-05-31] MEDS: CHLORHEXIDINE GLUCONATE 2 % 1 PACK (2 CLOTHS) TOP SCH (04:00)
[2016-05-31] MEDS: INSULIN NovoLIN REGULAR SUPPLEMENTAL SCALE SQ SCH ×4 (05:00→22:59)
[2016-05-31] MEDS ORDERED: FUROSEMIDE 20 MG/2 ML VIAL IV PUSH ONE (07:15)
[2016-05-31 08:16] LABS: AUTOMATED NEUTROPHIL # 10.6 TH/MM3 (1.8-7.7); BASOPHIL # 0.1 TH/MM3 (0-0.2); BASOPHIL % 0.5 % (0.0-2.0); EOSINOPHIL # 0.1 TH/MM3 (0-0.4); HEMATOCRIT 40.6 % (39.0-51.0); HEMO FLAGS DIFF FINAL; LYMPH % 11.4 % (9.0-44.0); LYMPHOCYTE # 1.5 TH/MM3 (1.0-4.8); MEAN CELL VOLUME 103.5 FL (80.0-100.0); MEAN CORPUSCULAR HEMOGLOBIN 34.4 PG (27.0-34.0); MEAN CORPUSCULAR HGB CONC 33.3 % (32.0-36.0); MONO % 7.4 % (0.0-8.0); NEUT % 79.7 % (16.0-70.0); PLATELET COUNT 166 TH/MM3 (150-450); RED BLOOD COUNT 3.93 MIL/MM3 (4.50-5.90); WHITE BLOOD COUNT 13.3 TH/MM3 (4.0-11.0)
[2016-05-31] MEDS: HEPARIN SODIUM - SQ 10,000 UNITS/ML VIAL SQ SCH ×2 (08:35→19:53)
[2016-05-31] MEDS: FAMOTIDINE 20 MG/2 ML VIAL IV PUSH SCH (08:35)
[2016-05-31] MEDS: SODIUM CHLORIDE 0.9% FLUSH 5 ML FLUSH IV FLUSH SCH ×2 (08:35→19:53)
[2016-05-31 09:27] LABS: ALKALINE PHOSPHATASE 108 U/L (45-117); ALT (GPT) 117 U/L (12-78); ANION GAP 6 MEQ/L (5-15); AST (GOT) 101 U/L (15-37); BICARBONATE 32.3 MEQ/L (21.0-32.0); BLOOD UREA NITROGEN 28 MG/DL (7-18); CHLORIDE 105 MEQ/L (98-107); GLOMERULAR FILTRATION RATE 52 ML/MIN (>89); POTASSIUM 4.1 MEQ/L (3.5-5.1); SODIUM (NA) 143 MEQ/L (136-145); TOTAL BILIRUBIN ADULT 1.7 MG/DL (0.2-1.0)
--- NOTE | 2016-05-31 10:06 | PD.TRANSFR ---
Transfer Summary Admission Date May 28, 2016 at 21:33 Admitting Diagnosis Found down at home after several days. Diagnoses: (1) Metabolic encephalopathy Diagnosis: Principal (2) Rhabdomyolysis Diagnosis: Principal (3) Dehydration, severe Diagnosis: Principal (4) ESTEFANIA (acute kidney injury) Diagnosis: Principal Transfer Summary/Subjective Found down after well-being check. Probably down for 3 - 5 days. Arrives severely dehydrated with rhabdomyolysis and ESTEFANIA. CT scan reveals minor atelectasis right lung, otherwise viscous organs normal aside from possible gallbladder sludge. CT Head normal. Disoriented and confused. Temp 97.2. 05/29 Patient is more awake Renal function improving with Cr: 1.51 from 2.02 on bicarb drip. Afebrile. 05/30: Mental status appears to be improving. White count improved from 13.8- 11.9. Sodium is 153 today's today was 156. Creatinine further improved 1.35. Patient is oriented to person, not oriented to place or time 05/31: Mental status exam significantly improved after sodium has normalized. IV fluids discontinued and 20 mg of IV Lasix given. Physical therapy consulted Objective Vital Signs Date Time Temp Pulse Resp B/P Pulse Ox O2 Delivery O2 Flow Rate FiO2 05/31/16 06:00 85 05/31/16 04:00 98.7 23 122/70 96 05/30/16 23:05 Nasal Cannula 2.00 Intake and Output 05/30/16 05/30/16 05/31/16 08:00 16:00 00:00 Intake Total 774 ml 368 ml 1379 ml Output Total 300 ml 350 ml 350 ml Balance 474 ml 18 ml 1029 ml Result Diagram: 05/31/16 0806 05/31/16 0806 Other Results Microbiology Date/Time Procedure Status Source Growth 05/28/16 20:04 Urine Culture - Final Complete Urine Catheterized Urine NO GROWTH IN 48 HOURS. Imaging Last Impressions Chest CT 05/28/162005 Signed Impressions: Service Date/Time: Saturday, May 28, 2016 20:36 - CONCLUSION: Trace bibasilar atelectasis and a tiny pleural effusion on the right. Coronary artery calcification. Earle Diane MD Abdomen/Pelvis CT 05/28/161956 Signed Impressions: Service Date/Time: Saturday, May 28, 2016 20:34 - CONCLUSION: No acute process demonstrated. Sludge or small stones possible in the gallbladder. No inflammatory changes or evidence of obstruction. Earle Diane MD Head CT 05/28/161931 Signed Impressions: Service Date/Time: Saturday, May 28, 2016 20:32 - CONCLUSION: No acute intracranial abnormality demonstrated. Earle Diane MD Chest X-Ray 05/28/161931 Signed Impressions: Service Date/Time: Saturday, May 28, 2016 19:45 - CONCLUSION: Prominent mediastinum but most likely related to technique. Standard upright 2 view chest x-ray recommended when clinically feasible. Otherwise within normal limits. Earle Diane MD Objective Remarks GENERAL: Patient is 70 lying in bed in NAD SKIN: Warm and dry. HEAD: Normocephalic. EYES: No scleral icterus. No injection or drainage. NECK: Supple, trachea midline. No JVD or lymphadenopathy. CARDIOVASCULAR: Regular rate and rhythm without murmurs, gallops, or rubs. RESPIRATORY: Breath sounds equal bilaterally. No accessory muscle use. GASTROINTESTINAL: Abdomen soft, non-tender, nondistended. MUSCULOSKELETAL: No cyanosis, or edema. Neuro: Awake, alert oriented to person and place. He follows commands on all 4 extremities Urinary Catheter: Yes Assessment to: Continue A/P Problem List: (1) Metabolic encephalopathy ICD Code: G93.41 Status: Acute (2) Dehydration, severe ICD Code: E86.0 Status: Acute (3) Rhabdomyolysis ICD Code: M62.82 Status: Acute (4) ESTEFANIA (acute kidney injury) ICD Code: N17.9 Status: Acute Assessment and Plan Assessment: Metabolic encephalopathy..improving ESTEFANIA Rhabdomyolysis Hypernatremia Dehydration Lactic acidosis- resolved Leukocytosis..trending down Elevated AST Plan: Neuro: Awake avoid sedatives. Encephalopathy most likely metabolic seems to be improving. CT head negative Pulm: Continue with oxygen keep sat >90% Bronchodilators PRN CT chest: Bibasilar atelectasis CV: Monitor HR and BP keep MAP>65mmHg. Lactic acidosis resolved : Monitor renal function, I/O's, avoid nephrotoxins Renal function improving IVF D5W@100ml/hr 125 ml per hour. DC and give 20 mg IV Lasix GI: Speech eval, request repeat as RN reports coughing with food intake. On Pepcid 20mg daily Monitor LFT, check US liver. CT abdomen/pelvis: No acute process demonstrated. Sludge or small stones possible in the gallbladder. Heme: Monitor CBC ID: Monitor for signs of infections (Fever, WBC) follow up on blood and urine cxs Endo: SSI for glycemic control GI prophylaxis- on Pepcid 20mg daily DVT prophylaxis- SCD, heparin SQ Level 2 Transfer to Med/surg. Hospitalist to assume care in Laura Og MD May 31, 2016 10:06
[2016-06-01] VITALS (8 sets, daily range): BP systolic 106–142; BP diastolic 62–90; PULSE 73–84; RESP 17–20; TEMP 95.4–98.7; O2SAT 92–96
[2016-06-01] MEDS: CHLORHEXIDINE GLUCONATE 2 % 1 PACK (2 CLOTHS) TOP SCH (04:00)
[2016-06-01] MEDS: INSULIN NovoLIN REGULAR SUPPLEMENTAL SCALE SQ SCH ×4 (04:03→23:00)
[2016-06-01] MEDS: FAMOTIDINE 20 MG/2 ML VIAL IV PUSH SCH (09:19)
[2016-06-01] MEDS: HEPARIN SODIUM - SQ 10,000 UNITS/ML VIAL SQ SCH ×2 (09:19→20:23)
[2016-06-01] MEDS: SODIUM CHLORIDE 0.9% FLUSH 5 ML FLUSH IV FLUSH SCH ×2 (09:19→20:23)
[2016-06-01 09:57] LABS: ALKALINE PHOSPHATASE 115 U/L (45-117); ALT (GPT) 101 U/L (12-78); ANION GAP 7 MEQ/L (5-15); AST (GOT) 61 U/L (15-37); BICARBONATE 28.9 MEQ/L (21.0-32.0); BLOOD UREA NITROGEN 28 MG/DL (7-18); CHLORIDE 104 MEQ/L (98-107); GLOMERULAR FILTRATION RATE 58 ML/MIN (>89); MAGNESIUM 1.9 MG/DL (1.5-2.5); POTASSIUM 3.8 MEQ/L (3.5-5.1); SODIUM (NA) 140 MEQ/L (136-145); TOTAL BILIRUBIN ADULT 1.3 MG/DL (0.2-1.0)
--- NOTE | 2016-06-01 13:09 | HHI.PR ---
Subjective Remarks /u with AMS patient able to tell me give me full name and date. When I asked him what happened and why he was found down. He stated he has been in [place] for protection and that he has been locked up there for a few days because people are after him. When I asked why were people after him he stated that he did very well on a test. I asked him what they wanted from him and he could not tell me well. Patient told me he was ambulating but when I asked nurse she stated patient is not ambulating and its taking 2 people to try to move him. Per nurse patient also has wounds on buttocks. Objective Vitals Vital Signs Date Time Temp Pulse Resp B/P Pulse Ox O2 Delivery O2 Flow Rate FiO2 06/01/16 12:00 96.7 78 20 134/84 94 06/01/16 10:41 96 06/01/16 08:00 95.4 75 20 106/62 96 06/01/16 04:00 96.8 73 18 122/78 92 06/01/16 00:31 97.8 84 18 142/90 95 05/31/16 21:18 97.0 80 18 134/78 95 05/31/16 17:45 98.9 72 20 144/66 97 05/31/16 16:00 96 Nasal Cannula 2.00 05/31/16 16:00 97.7 75 27 122/65 97 05/31/16 16:00 75 05/31/16 14:00 72 I/O 05/31/16 05/31/16 05/31/16 06/01/16 06/01/16 06/01/16 07:00 15:00 23:00 07:00 15:00 23:00 Intake Total 744 ml 782 ml 200 ml 100 ml Output Total 200 ml 1000 ml 400 ml 300 ml Balance 544 ml -218 ml -200 ml -200 ml Intake Oral 240 ml 200 ml 200 ml 100 ml IV Total 504 ml 582 ml Output Urine Total 200 ml 1000 ml 400 ml 300 ml # Bowel Movements 0 0 0 0 Result Diagram: 05/31/1680506/01/16 0909 Objective Remarks GENERAL: in nad CARDIOVASCULAR: Regular rate and rhythm without murmurs, gallops, or rubs. RESPIRATORY: Breath sounds equal bilaterally. No accessory muscle use. GASTROINTESTINAL: Abdomen soft, non-tender, nondistended. MUSCULOSKELETAL: No cyanosis, or edema. BACK: Nontender without obvious deformity. No CVA tenderness. Medications and IVs Current Medications IV Flush 2 ml 2 ml UNSCH PRN IVF FLUSH AFTER USING IV ACCESS; Start 05/28/16 at 19:45; Stop 05/28/16 at 22:00; Status DC Sodium Chloride 1,000 ml @ 1,000 mls/hr Q1H IV Last administered on 05/28/16 19:32; Start 05/28/16 at 19:32; Stop 05/28/16 at 20:31; Status DC Sodium Chloride (NS 1000 ml Inj) 1,000 ml @ 150 mls/hr Q6H40M IV Last administered on 05/29/16 04:22; Start 05/28/16 at 21:42; Stop 05/29/16 at 10:11; Status DC IV Flush (NS Flush) 2 ml UNSCH PRN IV FLUSH FLUSH AFTER USING IV ACCESS; Start 05/28/16 at 21:45 IV Flush (NS Flush) 2 ml BID IV FLUSH Last administered on 06/01/16 09:19; Start 05/29/16 at 09:00 Famotidine (Pepcid Inj) 20 mg DAILY IV PUSH Last administered on 06/01/16 09: 19; Start 05/29/16 at 09:00 Ondansetron HCl (Zofran Inj) 4 mg Q6H PRN IV NAUSEA OR VOMITING; Start 05/28/16 at 21:45 Albuterol/ Ipratropium (Duoneb Neb) 1 ampule Q4HR NEB PRN INH WHEEZING; Start 05/28/16 at 21:45 Heparin Sodium (Porcine) (Heparin Inj) 5,000 units Q12H SQ Last administered on 05/31/16 08:35; Start 05/28/16 at 21:45; Stop 05/31/16 at 10:58; Status DC Miscellaneous Information 1 Q361D XX Last administered on 05/28/16 21:45; Start 05/28/16 at 21:45 Chlorhexidine Gluconate (Chlorhexidine 2% Cloth) 3 pack Taper DAILY@04 TOP Last administered on 06/01/16 04:00; Start 05/29/16 at 04:00; Stop 05/25/17 at 03 :59 Chlorhexidine Gluconate 3 pack 3 pack UNSCH PRN TOP HYGIENIC CARE; Start at 21:45 Sodium Bicarbonate 100 meq/Dextrose 1,100 ml @ 42 mls/hr Q24H IV Last administered on 05/28/16 22:21; Start 05/28/16 at 21:45; Stop 05/29/16 at 10:11; Status DC Sodium Chloride 1,000 ml @ 999 mls/hr BOLUS ONCE IV Last administered on 22:12; Start 05/28/16 at 21:45; Stop 05/28/16 at 22:45; Status DC Sodium Chloride (NS 1000 ml Inj) 1,000 ml @ 999 mls/hr BOLUS ONCE IV Last administered on 05/28/16 22:12; Start 05/28/16 at 21:45; Stop 05/28/16 at 22:45; Status DC Miscellaneous Information 1 Q361D XX ; Start 05/28/16 at 22:00; Stop 05/28/16 at 22:00; Status DC Chlorhexidine Gluconate (Chlorhexidine 2% Cloth) 3 pack Taper DAILY@04 TOP ; Start 05/29/16 at 04:00; Stop 05/29/16 at 04:00; Status DC Chlorhexidine Gluconate 3 pack 3 pack UNSCH PRN TOP HYGIENIC CARE; Start at 22:00; Stop 05/28/16 at 22:00; Status DC Dextrose (D5W 1000 ml Inj) 1,000 ml @ 100 mls/hr Q10H IV Last administered on 05/30/16 21:21; Start 05/29/16 at 11:00; Stop 05/31/16 at 09:52; Status DC Dextrose (D50w (Vial) Inj) 25 ml UNSCH PRN IV PUSH HYPOGLYCEMIA-SEE COMMENTS; Start 05/29/16 at 10:15 Glucagon (Glucagon Inj) 1 mg UNSCH PRN OTHER HYPOGLYCEMIA-SEE COMMENTS; Start 05/29/16 at 10:15 Insulin Human Regular (NovoLIN R SUPPLEMENTAL SCALE) 1 Q6H SQ Last administered on 06/01/16 12:16; Start 05/29/16 at 11:00 Furosemide (Lasix Inj) 20 mg ONCE ONCE IV PUSH Last administered on 05/31/16 08:35; Start 05/31/16 at 07:15; Stop 05/31/16 at 07:16; Status DC Heparin Sodium (Porcine) (Heparin Inj) 5,000 units Q12H SQ Last administered on 06/01/16 09:19; Start 05/31/16 at 21:00 A/P Problem List: (1) Metabolic encephalopathy ICD Code: G93.41 Status: Acute (2) Rhabdomyolysis ICD Code: M62.82 Status: Acute (3) Dehydration, severe ICD Code: E86.0 Status: Acute (4) ESTEFANIA (acute kidney injury) ICD Code: N17.9 Status: Acute Assessment and Plan Metabolic encephalopathy -resolved. -CT scan negative. -s/p in ICU ESTEFANIA -resolved. Rhabdomyolysis -resolved. Hypernatremia -due to dehydration resolved. elevated LFT -CT abdomen/pelvis: No acute process demonstrated. Sludge or small stones possible in the gallbladder. questionable delusional -patient stated people are after him. -will consult Psychiatry. GI prophylaxis- on Pepcid 20mg daily DVT prophylaxis- SCD, heparin SQ Estrella Ignacio MD Jun 01, 2016 13:09
[2016-06-02] VITALS (7 sets, daily range): BP systolic 109–142; BP diastolic 67–82; PULSE 70–81; RESP 16–20; TEMP 96.2–98.4; O2SAT 94–99
[2016-06-02] MEDS: INSULIN NovoLIN REGULAR SUPPLEMENTAL SCALE SQ SCH ×5 (00:30→23:00)
[2016-06-02] MEDS: CHLORHEXIDINE GLUCONATE 2 % 1 PACK (2 CLOTHS) TOP SCH (04:00)
[2016-06-02 06:19] LABS: POTASSIUM 4.1 MEQ/L (3.5-5.1)
[2016-06-02 07:48] LABS: HEMATOCRIT 38.5 % (39.0-51.0); MEAN CELL VOLUME 101.5 FL (80.0-100.0); MEAN CORPUSCULAR HEMOGLOBIN 35.3 PG (27.0-34.0); MEAN CORPUSCULAR HGB CONC 34.7 % (32.0-36.0); PLATELET COUNT 150 TH/MM3 (150-450); RED BLOOD COUNT 3.79 MIL/MM3 (4.50-5.90); RED CELL DISTRIBUTION WIDTH 13.3 % (11.6-17.2); WHITE BLOOD COUNT 13.2 TH/MM3 (4.0-11.0)
[2016-06-02 07:49] LABS: REVIEW FLAG FINAL
[2016-06-02] MEDS: SODIUM CHLORIDE 0.9% FLUSH 5 ML FLUSH IV FLUSH SCH ×2 (08:40→20:56)
[2016-06-02] MEDS: HEPARIN SODIUM - SQ 10,000 UNITS/ML VIAL SQ SCH ×2 (08:40→20:56)
[2016-06-02] MEDS: FAMOTIDINE 20 MG/2 ML VIAL IV PUSH SCH (08:41)
--- NOTE | 2016-06-02 11:05 | HHI.PR ---
Subjective Remarks f/u for AMS Patient is oriented to name, location and was able to tell me year. I asked him again what happened before he was hospitalized. 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 he could not expand. Then I asked him about him saying people were after him and he stated he did not recall that. patient asking to go home but he cannot ambulate. He stated he need to see his animals. I asked if he had any family or friends around and he stated yes. spoke to nurse to help patient call his family members so they can assist him with this. no acute events overnight. Objective Vitals Vital Signs Date Time Temp Pulse Resp B/P Pulse Ox O2 Delivery O2 Flow Rate FiO2 06/02/16 08:50 96.2 72 16 137/75 95 06/02/16 04:00 97.8 70 16 142/82 96 06/02/16 00:00 96.8 76 17 140/79 94 06/01/16 20:29 95 Nasal Cannula 2.00 06/01/16 20:00 97.4 76 17 131/77 94 06/01/16 16:07 98.7 81 20 136/72 95 06/01/16 12:00 96.7 78 20 134/84 94 I/O 06/01/16 06/01/16 06/01/16 06/02/16 06/02/16 06/02/16 07:00 15:00 23:00 07:00 15:00 23:00 Intake Total 100 ml 120 ml 60 ml 60 ml Output Total 300 ml 450 ml Balance -200 ml 120 ml -390 ml 60 ml Intake Oral 100 ml 120 ml 60 ml 60 ml Output Urine Total 300 ml 450 ml # Bowel Movements 0 0 Result Diagram: 06/02/1652106/02/16521 Objective Remarks GENERAL: in nad CARDIOVASCULAR: Regular rate and rhythm without murmurs, gallops, or rubs. RESPIRATORY: Breath sounds equal bilaterally. No accessory muscle use. GASTROINTESTINAL: Abdomen soft, non-tender, nondistended. MUSCULOSKELETAL: No cyanosis, or edema. BACK: Nontender without obvious deformity. No CVA tenderness. Medications and IVs Current Medications IV Flush 2 ml 2 ml UNSCH PRN IVF FLUSH AFTER USING IV ACCESS; Start 05/28/16 at 19:45; Stop 05/28/16 at 22:00; Status DC Sodium Chloride 1,000 ml @ 1,000 mls/hr Q1H IV Last administered on 05/28/16 19:32; Start 05/28/16 at 19:32; Stop 05/28/16 at 20:31; Status DC Sodium Chloride (NS 1000 ml Inj) 1,000 ml @ 150 mls/hr Q6H40M IV Last administered on 05/29/16 04:22; Start 05/28/16 at 21:42; Stop 05/29/16 at 10:11; Status DC IV Flush (NS Flush) 2 ml UNSCH PRN IV FLUSH FLUSH AFTER USING IV ACCESS; Start 05/28/16 at 21:45 IV Flush (NS Flush) 2 ml BID IV FLUSH Last administered on 06/02/16 08:40; Start 05/29/16 at 09:00 Famotidine (Pepcid Inj) 20 mg DAILY IV PUSH Last administered on 06/02/16 08: 41; Start 05/29/16 at 09:00 Ondansetron HCl (Zofran Inj) 4 mg Q6H PRN IV NAUSEA OR VOMITING; Start 05/28/16 at 21:45 Albuterol/ Ipratropium (Duoneb Neb) 1 ampule Q4HR NEB PRN INH WHEEZING; Start 05/28/16 at 21:45 Heparin Sodium (Porcine) (Heparin Inj) 5,000 units Q12H SQ Last administered on 05/31/16 08:35; Start 05/28/16 at 21:45; Stop 05/31/16 at 10:58; Status DC Miscellaneous Information 1 Q361D XX Last administered on 05/28/16 21:45; Start 05/28/16 at 21:45 Chlorhexidine Gluconate (Chlorhexidine 2% Cloth) 3 pack Taper DAILY@04 TOP Last administered on 06/01/16 04:00; Start 05/29/16 at 04:00; Stop 05/25/17 at 03 :59 Chlorhexidine Gluconate 3 pack 3 pack UNSCH PRN TOP HYGIENIC CARE; Start at 21:45 Sodium Bicarbonate 100 meq/Dextrose 1,100 ml @ 42 mls/hr Q24H IV Last administered on 05/28/16 22:21; Start 05/28/16 at 21:45; Stop 05/29/16 at 10:11; Status DC Sodium Chloride 1,000 ml @ 999 mls/hr BOLUS ONCE IV Last administered on 22:12; Start 05/28/16 at 21:45; Stop 05/28/16 at 22:45; Status DC Sodium Chloride (NS 1000 ml Inj) 1,000 ml @ 999 mls/hr BOLUS ONCE IV Last administered on 05/28/16 22:12; Start 05/28/16 at 21:45; Stop 05/28/16 at 22:45; Status DC Miscellaneous Information 1 Q361D XX ; Start 05/28/16 at 22:00; Stop 05/28/16 at 22:00; Status DC Chlorhexidine Gluconate (Chlorhexidine 2% Cloth) 3 pack Taper DAILY@04 TOP ; Start 05/29/16 at 04:00; Stop 05/29/16 at 04:00; Status DC Chlorhexidine Gluconate 3 pack 3 pack UNSCH PRN TOP HYGIENIC CARE; Start at 22:00; Stop 05/28/16 at 22:00; Status DC Dextrose (D5W 1000 ml Inj) 1,000 ml @ 100 mls/hr Q10H IV Last administered on 05/30/16 21:21; Start 05/29/16 at 11:00; Stop 05/31/16 at 09:52; Status DC Dextrose (D50w (Vial) Inj) 25 ml UNSCH PRN IV PUSH HYPOGLYCEMIA-SEE COMMENTS; Start 05/29/16 at 10:15 Glucagon (Glucagon Inj) 1 mg UNSCH PRN OTHER HYPOGLYCEMIA-SEE COMMENTS; Start 05/29/16 at 10:15 Insulin Human Regular (NovoLIN R SUPPLEMENTAL SCALE) 1 Q6H SQ Last administered on 06/01/16 12:16; Start 05/29/16 at 11:00 Furosemide (Lasix Inj) 20 mg ONCE ONCE IV PUSH Last administered on 05/31/16 08:35; Start 05/31/16 at 07:15; Stop 05/31/16 at 07:16; Status DC Heparin Sodium (Porcine) (Heparin Inj) 5,000 units Q12H SQ Last administered on 06/02/16 08:40; Start 05/31/16 at 21:00 A/P Problem List: (1) Metabolic encephalopathy ICD Code: G93.41 Status: Acute (2) Rhabdomyolysis ICD Code: M62.82 Status: Acute (3) Dehydration, severe ICD Code: E86.0 Status: Acute (4) ESTEFANIA (acute kidney injury) ICD Code: N17.9 Status: Acute Assessment and Plan Metabolic encephalopathy -resolved. -CT scan negative. -s/p in ICU ESTEFANIA -resolved. Rhabdomyolysis -resolved. Hypernatremia -due to dehydration resolved. elevated LFT -CT abdomen/pelvis: No acute process demonstrated. Sludge or small stones possible in the gallbladder. questionable delusional vs metabolic encephalopathy -pending Psychiatry consult. GI prophylaxis- on Pepcid 20mg daily DVT prophylaxis- SCD, heparin SQ Discharge Planning pending recommendations from Psych. upon discharge he will need to go to rehab. Estrella Ignacio MD Jun 02, 2016 11:05
[2016-06-02] MEDS: QUEtiapine FUMARATE 25 MG TAB PO SCH ×2 (13:01→20:56)
--- NOTE | 2016-06-02 13:46 | MB ---
cc: MD KNAPP JITENDRA DATE OF CONSULTATION: 06/02/2016. HISTORY OF PRESENT ILLNESS: This is a 70-year-old white male who was found down on the ground. The patient told the physician that he has been in the [facility] for protection and that he has been locked up there for a few days because people were after him. At the present time the patient denies any paranoid delusions. He denies any active auditory or visual hallucinations but he does admit to feeling somewhat confused regarding time and date. He claimed that in the past he has been feeling depressed. He lives alone. He has no family members. There was a mild tremor of the right upper extremity noted. He denied any suicidal and/or homicidal ideation, intentions or plans. No behavior or management problem reported. He is thinking about going to an assisted living facility in the future if he is not able to look after himself. BACKGROUND HISTORY: The patient was born in [place]. He has one brother alive. One brother . His parents have ; he was close to both of them. The patient describes his childhood as happy. He denied any physical, verbal or sexual abuse growing up. He did finish high school and bachelor's degree in college. 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 He does admit to in the past some alcohol use but no legal difficulty. PAST PSYCHIATRIC HISTORY: The patient denied any inpatient psychiatric hospitalization or alcohol rehab inpatient. FAMILY HISTORY: Negative for any emotional difficulty, nervous breakdown or suicide attempt. MENTAL STATUS EXAMINATION: This is a 70-year-old white male who looks about the same as his stated age. He was alert, oriented x2, cooperative, casually dressed. His speech was slow, monotone, monosyllabic without any evidence of loose associations or flight of ideas or pressured speech. His mood was described as feeling somewhat depressed and frustrated and at times confused. His affect was restricted. He denied any suicidal and/or homicidal ideations, intention or plans. Denied any active auditory or visual hallucinations. He denies any paranoid delusions at this time but as you have suggested in your note, he felt like people were after him and he wanted some protection. He seems to be of low-average intelligence with poor recent memory. His insight is fair and his judgment seems to be okay on hypothetical situation. IMPRESSION: Early dementia with depression and maybe some paranoia. RECOMMENDATIONS: At this time, I would that we start him on a low dosage of Seroquel at bedtime and if not started, maybe some Aricept to help him. We will also suggest that neonatal social worker should talk to him regarding aftercare and discharge planning if he is living alone and maybe he needs some assistance. Maybe he can go to an assisted living facility. I thank you very much for allowing me to participate in the care of this patient. If there is anything more I can offer, please do not hesitate to reconsult. Mirza MEDINA /11:04 AM /1:39 PM
[2016-06-02] MEDS: DONEPEZIL HCL 5 MG TAB PO SCH (20:55)
[2016-06-03] VITALS (9 sets, daily range): BP systolic 105–127; BP diastolic 61–78; PULSE 70–92; RESP 16–22; TEMP 97.5–98.7; O2SAT 94–98
[2016-06-03] MEDS: CHLORHEXIDINE GLUCONATE 2 % 1 PACK (2 CLOTHS) TOP SCH (04:00)
[2016-06-03] MEDS: INSULIN NovoLIN REGULAR SUPPLEMENTAL SCALE SQ SCH ×4 (05:00→23:31)
[2016-06-03 06:30] LABS: POTASSIUM 3.7 MEQ/L (3.5-5.1)
[2016-06-03 06:36] LABS: MEAN CELL VOLUME 104.3 FL (80.0-100.0); MEAN CORPUSCULAR HEMOGLOBIN 34.7 PG (27.0-34.0); MEAN CORPUSCULAR HGB CONC 33.2 % (32.0-36.0); PLATELET COUNT 164 TH/MM3 (150-450); RED BLOOD COUNT 3.74 MIL/MM3 (4.50-5.90); RED CELL DISTRIBUTION WIDTH 13.5 % (11.6-17.2); REVIEW FLAG FINAL; WHITE BLOOD COUNT 11.2 TH/MM3 (4.0-11.0)
--- NOTE | 2016-06-03 07:40 | RADRPT ---
EXAM DATE/TIME: 06/03/2016 06:09 [facility] COMPARISON: CHEST SINGLE AP, May 28, 2016, 19:45. INDICATIONS : Shortness of breath, cough, and congestion. MEDICAL HISTORY : None. SURGICAL HISTORY : None. ENCOUNTER: Initial ACUITY: 2 weeks PAIN SCORE: 0/10 LOCATION: Bilateral chest FINDINGS: The heart size is enlarged. There is mild increased density at the left base. The right lung is clear . No effusion is seen. CONCLUSION: 1. Cardiomegaly 2. Suspected mild atelectasis/consolidation at the left base. Earle Montalvo MD on June 03, 2016 at 7:36 Board Certified Radiologist. This report was verified electronically.
[2016-06-03] MEDS: HEPARIN SODIUM - SQ 10,000 UNITS/ML VIAL SQ SCH ×2 (08:32→21:00)
[2016-06-03] MEDS: QUEtiapine FUMARATE 25 MG TAB PO SCH ×2 (08:32→21:00)
[2016-06-03] MEDS: SODIUM CHLORIDE 0.9% FLUSH 5 ML FLUSH IV FLUSH SCH ×2 (08:32→21:01)
[2016-06-03] MEDS: FAMOTIDINE 20 MG/2 ML VIAL IV PUSH SCH (08:32)
--- NOTE | 2016-06-03 10:53 | HHI.PR ---
Subjective Remarks f/u for AMS patient able to tell me he is at the hospital and give me his name. He is very slow in speech and denied any SOB, cough , pain or any concerns. Nurse at bedside and stated no issues except he did have cxr last night due to his lungs sounding junking. d/w case management in regards to placement and she stated Psychiatrist has to evaluate for competency and capacity since patient is confused. per charge nurse patient had some hallucination last night. Objective Vitals Vital Signs Date Time Temp Pulse Resp B/P Pulse Ox O2 Delivery O2 Flow Rate FiO2 06/03/16 10:05 96 Nasal Cannula 2.00 06/03/16 08:00 97.7 73 16 124/73 94 06/03/16 06:24 94 Nasal Cannula 2.00 06/03/16 04:53 98.1 89 20 105/62 94 06/03/16 00:15 98.7 78 22 126/78 98 06/02/16 20:55 98.4 77 20 121/74 99 06/02/16 16:00 96.5 81 16 142/81 96 06/02/16 12:58 96.4 78 16 109/67 97 06/02/16 12:31 95 I/O 06/02/16 06/02/16 06/02/16 06/03/16 06/03/16 06/03/16 07:00 15:00 23:00 07:00 15:00 23:00 Intake Total 60 ml 360 ml 240 ml 120 ml Output Total 600 ml 700 ml 500 ml Balance 60 ml -240 ml -460 ml -380 ml Intake Oral 60 ml 360 ml 240 ml 120 ml Output Urine Total 600 ml 700 ml 500 ml # Bowel Movements 1 1 1 Result Diagram: 06/03/16 0551 06/03/16 0551 Objective Remarks GENERAL: in nad CARDIOVASCULAR: Regular rate and rhythm without murmurs, gallops, or rubs. RESPIRATORY: Breath sounds equal bilaterally. No accessory muscle use. GASTROINTESTINAL: Abdomen soft, non-tender, nondistended. MUSCULOSKELETAL: No cyanosis, or edema. BACK: Nontender without obvious deformity. No CVA tenderness. Medications and IVs Current Medications IV Flush 2 ml 2 ml UNSCH PRN IVF FLUSH AFTER USING IV ACCESS; Start 05/28/16 at 19:45; Stop 05/28/16 at 22:00; Status DC Sodium Chloride 1,000 ml @ 1,000 mls/hr Q1H IV Last administered on 05/28/16 19:32; Start 05/28/16 at 19:32; Stop 05/28/16 at 20:31; Status DC Sodium Chloride (NS 1000 ml Inj) 1,000 ml @ 150 mls/hr Q6H40M IV Last administered on 05/29/16 04:22; Start 05/28/16 at 21:42; Stop 05/29/16 at 10:11; Status DC IV Flush (NS Flush) 2 ml UNSCH PRN IV FLUSH FLUSH AFTER USING IV ACCESS; Start 05/28/16 at 21:45 IV Flush (NS Flush) 2 ml BID IV FLUSH Last administered on 06/03/16 08:32; Start 05/29/16 at 09:00 Famotidine (Pepcid Inj) 20 mg DAILY IV PUSH Last administered on 06/03/16 08: 32; Start 05/29/16 at 09:00 Ondansetron HCl (Zofran Inj) 4 mg Q6H PRN IV NAUSEA OR VOMITING; Start 05/28/16 at 21:45 Albuterol/ Ipratropium (Duoneb Neb) 1 ampule Q4HR NEB PRN INH WHEEZING Last administered on 06/03/16 06:11; Start 05/28/16 at 21:45 Heparin Sodium (Porcine) (Heparin Inj) 5,000 units Q12H SQ Last administered on 05/31/16 08:35; Start 05/28/16 at 21:45; Stop 05/31/16 at 10:58; Status DC Miscellaneous Information 1 Q361D XX Last administered on 05/28/16 21:45; Start 05/28/16 at 21:45 Chlorhexidine Gluconate (Chlorhexidine 2% Cloth) Taper DAILY@04 TOP Last administered on 06/03/16 04:00; Start 05/29/16 at 04:00; Stop 05/25/17 at 03:59 Chlorhexidine Gluconate 3 pack 3 pack UNSCH PRN TOP HYGIENIC CARE; Start at 21:45 Sodium Bicarbonate 100 meq/Dextrose 1,100 ml @ 42 mls/hr Q24H IV Last administered on 05/28/16 22:21; Start 05/28/16 at 21:45; Stop 05/29/16 at 10:11; Status DC Sodium Chloride 1,000 ml @ 999 mls/hr BOLUS ONCE IV Last administered on 22:12; Start 05/28/16 at 21:45; Stop 05/28/16 at 22:45; Status DC Sodium Chloride (NS 1000 ml Inj) 1,000 ml @ 999 mls/hr BOLUS ONCE IV Last administered on 05/28/16 22:12; Start 05/28/16 at 21:45; Stop 05/28/16 at 22:45; Status DC Miscellaneous Information 1 Q361D XX ; Start 05/28/16 at 22:00; Stop 05/28/16 at 22:00; Status DC Chlorhexidine Gluconate (Chlorhexidine 2% Cloth) 3 pack Taper DAILY@04 TOP ; Start 05/29/16 at 04:00; Stop 05/29/16 at 04:00; Status DC Chlorhexidine Gluconate 3 pack 3 pack UNSCH PRN TOP HYGIENIC CARE; Start at 22:00; Stop 05/28/16 at 22:00; Status DC Dextrose (D5W 1000 ml Inj) 1,000 ml @ 100 mls/hr Q10H IV Last administered on 05/30/16 21:21; Start 05/29/16 at 11:00; Stop 05/31/16 at 09:52; Status DC Dextrose (D50w (Vial) Inj) 25 ml UNSCH PRN IV PUSH HYPOGLYCEMIA-SEE COMMENTS; Start 05/29/16 at 10:15 Glucagon (Glucagon Inj) 1 mg UNSCH PRN OTHER HYPOGLYCEMIA-SEE COMMENTS; Start 05/29/16 at 10:15 Insulin Human Regular (NovoLIN R SUPPLEMENTAL SCALE) 1 Q6H SQ Last administered on 06/01/16 12:16; Start 05/29/16 at 11:00 Furosemide (Lasix Inj) 20 mg ONCE ONCE IV PUSH Last administered on 05/31/16 08:35; Start 05/31/16 at 07:15; Stop 05/31/16 at 07:16; Status DC Heparin Sodium (Porcine) (Heparin Inj) 5,000 units Q12H SQ Last administered on 06/03/16 08:32; Start 05/31/16 at 21:00 Quetiapine Fumarate (SEROquel) 25 mg BID PO Last administered on 06/03/16 08: 32; Start 06/02/16 at 12:00 Donepezil HCl (Aricept) 10 mg HS PO Last administered on 06/02/16 20:55; Start 06/02/16 at 21:00 A/P Problem List: (1) Metabolic encephalopathy ICD Code: G93.41 Status: Acute (2) Rhabdomyolysis ICD Code: M62.82 Status: Acute (3) Dehydration, severe ICD Code: E86.0 Status: Acute (4) ESTEFANIA (acute kidney injury) ICD Code: N17.9 Status: Acute Assessment and Plan Metabolic encephalopathy -resolved. -CT scan negative. -s/p in ICU. ESTEFANIA -resolved. Rhabdomyolysis -resolved. Hypernatremia -due to dehydration resolved. elevated LFT -CT abdomen/pelvis: No acute process demonstrated. Sludge or small stones possible in the gallbladder. questionable delusional vs metabolic encephalopathy - Psychiatrist thinks this is dementia with possible psychosis. -need to reconsult for competency and capacity. GI prophylaxis- on Pepcid 20mg daily DVT prophylaxis- SCD, heparin SQ Discharge Planning patient continues to be altered and needs evaluation for competency and capacity. I will reconsult Psych for this. d/w case management Estrella Dwyer MD Jun 03, 2016 10:53
[2016-06-03] MEDS: RESP: ALBUTEROL 2.5 MG/IPRATROPIUM 0.5 MG NEB (SCH) NEB ×3 (11:20→19:22)
--- NOTE | 2016-06-03 16:24 | MB ---
cc: MD ARIA,MARIAN DATE OF CONSULTATION: 06/03/2016. ADDENDUM This is a 70-year-old white male. A consult was placed again per the request of social work program coordinator to find out whether the patient has capacity or not. Based on the interview yesterday, and I talked to him today, he may be little bit confused about the date and time but he realizes what is going on. He denied any suicidal ideation, intentions or plan. He denied any active auditory or visual hallucinations. He may be mildly guarded and confused but understands that he is in a [facility] and may need to go to an assisted living facility. CAPACITY: I believe that he does have the capacity, in my opinion at this point. If there is anything more you need, please do not hesitate to reconsult. Marian BARRY/FRANCINE /1:04 PM /3:21 PM
[2016-06-03] MEDS: DONEPEZIL HCL 5 MG TAB PO SCH (21:00)
[2016-06-04] VITALS: BP 120/60; PULSE 89; RESP 18; TEMP 97.7; O2SAT 94
[2016-06-04] MEDS: RESP: ALBUTEROL 2.5 MG/IPRATROPIUM 0.5 MG NEB (SCH) NEB ×4 (00:40→13:50)
[2016-06-04 00:41] VITALS: O2SAT 98
[2016-06-04] MEDS: CHLORHEXIDINE GLUCONATE 2 % 1 PACK (2 CLOTHS) TOP SCH (03:34)
[2016-06-04 04:00] VITALS: BP 120/66; PULSE 98; RESP 19; TEMP 97.8; O2SAT 92
[2016-06-04] MEDS: INSULIN NovoLIN REGULAR SUPPLEMENTAL SCALE SQ SCH ×2 (05:00→12:41)
[2016-06-04 08:10] VITALS: O2SAT 94
[2016-06-04 09:00] VITALS: BP 140/64; PULSE 83; RESP 18; TEMP 97.2; O2SAT 94
[2016-06-04] MEDS: SODIUM CHLORIDE 0.9% FLUSH 5 ML FLUSH IV FLUSH SCH (09:20)
[2016-06-04] MEDS: FAMOTIDINE 20 MG/2 ML VIAL IV PUSH SCH (09:20)
[2016-06-04] MEDS: HEPARIN SODIUM - SQ 10,000 UNITS/ML VIAL SQ SCH (09:21)
[2016-06-04] MEDS: QUEtiapine FUMARATE 25 MG TAB PO SCH (09:21)
[2016-06-04] MEDS ORDERED: QUET1TAB7 PO (10:08)
--- NOTE | 2016-06-04 10:09 | HHI.DS ---
Discharge Summary Admission Date May 28, 2016 at 21:33 Discharge Date: Jun 04, 2016 Admitting Diagnosis Found down at home after several days. (1) Metabolic encephalopathy ICD Code: G93.41 Diagnosis: Principal (2) Rhabdomyolysis ICD Code: M62.82 Diagnosis: Principal (3) Dehydration, severe ICD Code: E86.0 Diagnosis: Principal (4) ESTEFANIA (acute kidney injury) ICD Code: N17.9 Diagnosis: Principal (5) Dementia ICD Code: F03.90 Diagnosis: Secondary Procedures None Brief History - From Admission Found down after well-being check. Probably down for 3 - 5 days. Arrives severely dehydrated with rhabdomyolysis and ESTEFANIA. Scans of trunk reveals minor atelectasis right lung, otherwise viscous organs normal aside from possible gallbladder sludge. CT Head normal. Disoriented and confused. Temp 97.2. CBC/BMP: 06/03/16 0551 06/03/16 0551 Significant Findings Laboratory Tests Test 06/02/16 06/03/16 05:22 05:51 White Blood Count 13.2 TH/MM3 11.2 TH/MM3 (4.0-11.0) (4.0-11.0) Red Blood Count 3.79 MIL/MM3 3.74 MIL/MM3 (4.50-5.90) (4.50-5.90) Hematocrit 38.5 % (39.0-51.0) Mean Corpuscular Volume 101.5 FL 104.3 FL (80.0-100.0) (80.0-100.0) Mean Corpuscular Hemoglobin 35.3 PG 34.7 PG (27.0-34.0) (27.0-34.0) Mean Platelet Volume 11.3 FL (7.0-11.0) Blood Urea Nitrogen 26 MG/DL (7-18) 23 MG/DL (7-18) Estimat Glomerular Filtration 63 ML/MIN (>89) 70 ML/MIN (>89) Rate Random Glucose 124 MG/DL 123 MG/DL (74-106) (74-106) Imaging Last 72 hours Impressions Chest X-Ray 06/03/16 0000 Signed Impressions: Service Date/Time: Friday, June 03, 2016 06:09 - CONCLUSION: 1. Cardiomegaly 2. Suspected mild atelectasis/consolidation at the left base. Earle Montalvo MD PE at Discharge GENERAL: in nad CARDIOVASCULAR: Regular rate and rhythm without murmurs, gallops, or rubs. RESPIRATORY: Breath sounds equal bilaterally. No accessory muscle use. GASTROINTESTINAL: Abdomen soft, non-tender, nondistended. MUSCULOSKELETAL: No cyanosis, or edema. BACK: Nontender without obvious deformity. No CVA tenderness. Transfer Summary Found down after well-being check. Probably down for 3 - 5 days. Arrives severely dehydrated with rhabdomyolysis and ESTEFANIA. CT scan reveals minor atelectasis right lung, otherwise viscous organs normal aside from possible gallbladder sludge. CT Head normal. Disoriented and confused. Temp 97.2. 05/29 Patient is more awake Renal function improving with Cr: 1.51 from 2.02 on bicarb drip. Afebrile. 05/30: Mental status appears to be improving. White count improved from 13.8- 11.9. Sodium is 153 today's today was 156. Creatinine further improved 1.35. Patient is oriented to person, not oriented to place or time 05/31: Mental status exam significantly improved after sodium has normalized. IV fluids discontinued and 20 mg of IV Lasix given. Physical therapy consulted Pt update on day of discharge patient was seen and AAO X 3. he stated that he actually slipped and fell. denied seeing anything and conversations was appropriate. no acute events. Hospital Course Metabolic encephalopathy -due to dehydration in a setting of dementia and possible mechanical fall. -resolved. -CT scan negative. ESTEFANIA -due to rhado and dehydration. -he was given IVFs and strict I/O and it resolved during hospital course. Rhabdomyolysis -due to being down for a long being time. -patient given aggressive IVFs and that resolved. Hypernatremia -due to dehydration -given IVFs and it resolved. elevated LFT -CT abdomen/pelvis: No acute process demonstrated. Sludge or small stones possible in the gallbladder. questionable delusional vs metabolic encephalopathy - Psychiatrist thinks this is dementia with possible psychosis. patient does have dementia. -he was put on Geodon and did well. -psychiatrist stated he had capacity to make decision. Dementia -home medication resume upon discharge. Pt Condition on Discharge: Stable Discharge Disposition: Discharge to SNF Discharge Time: > 30 minutes Discharge Instructions DIET: Follow Instructions for: Heart Healthy Diet Speech Therapy-Diet Recommends: Soft Activities you can perform: Regular-No Restrictions Follow up Referrals: PCP Follow-up New Medications: Quetiapine (Quetiapine) 25 Mg Tab 25 MG PO BID Agitation #60 Ref 0 TAB Continued Medications: Carbidopa-Levodopa (Sinemet) 25-100 Mg Tab 1.5 TAB PO QID Parkinson Disease Mgmt #90 Ref 0 TAB Escitalopram (Lexapro) 5 Mg Tab 5 MG PO DAILY #30 Ref 0 TAB Gabapentin (Gabapentin) 100 Mg Cap 200 MG PO TID #90 Ref 0 CAP Simvastatin (Simvastatin) 20 Mg Tab 20 MG PO HS Cholesterol Management #30 Ref 0 TAB Tamsulosin (Flomax) 0.4 Mg Cap 0.4 MG PO DAILY Manage Prostate Problems #30 Ref 0 CAP Estrella Ignacio MD Jun 04, 2016 10:08
[2016-06-04 12:00] VITALS: BP 92/66; PULSE 87; RESP 20; TEMP 97.5; O2SAT 98
== END 2016-06-04 15:26 | DRG 71 ==
LOC: NEPC 19:25 → NEDA 21:33 → HIMN 05-29 00:10 → HOCB 05-31 17:50
PROVIDERS: ADMIT Family Medicine; ATTEND Family Medicine
DX: G93.41 Metabolic encephalopathy (principal); M62.82 Rhabdomyolysis; N17.9 Acute kidney failure, unspecified; E87.0 Hyperosmolality and hypernatremia; L89.159 Pressure ulcer of sacral region, unspecified stage; E87.2 Acidosis; F03.90 Unspecified dementia, unspecified severity, without behavioral disturbance, psychotic disturbance, mood disturbance, and anxiety; G20 Parkinson's disease; J98.11 Atelectasis; E86.0 Dehydration; E78.00 Pure hypercholesterolemia, unspecified; I10 Essential (primary) hypertension; K21.9 Gastro-esophageal reflux disease without esophagitis; F32.9 Major depressive disorder, single episode, unspecified
CPT/HCPCS: 51702; 70450; 71010; 71250; 74176; 76705; 76937; 80048; 80053; 80307; 81001; 82140; 82550; 82552; 82948; 83605; 83735; 84100; 84443; 84484; 85025; 85027; 85610; 85730; 87040; 87086; 87641; 93005; 94640; 94664; 96360; 96361; J1644; J1940; J7030; J7070